=== PATIENT | female | born 1985 | race Caucasian/White ===

== ENCOUNTER 2018-07-07 09:46 | Emergency (ER) | payer OTHER, MEDICAID, SELFPAY ==
[2018-07-07 09:54] VITALS: BP 167/97; PULSE 103; RESP 20; TEMP 36.8; O2SAT 100; BMI 18.8
[2018-07-07 10:00] VITALS: BP 167/87; PULSE 102; RESP 20; O2SAT 99
[2018-07-07 11:21] VITALS: BP 151/92; PULSE 81; RESP 24; O2SAT 98
--- NOTE | 2018-07-07 11:43 | ED.ABDPAIN ---
HPI - Abdominal Pain General Chief Complaint: Abdominal Pain Stated Complaint: ABD PAIN Time Seen by Provider: 07/07/18 11:42 Source: patient Mode of arrival: ambulatory Limitations: no limitations History of Present Illness HPI narrative: Patient is a 33-year-old female here for evaluation of left-sided abdominal pain. She states has been going on for the past several days. Has had some nausea but no vomiting. Has had her appendix out in the past. No change in her bowel symptoms. No urinary symptoms. She is currently on her menstrual cycle. Not on control. Has not tried anything for symptoms prior to arrival. Related Data Previous Rx's Medication Instructions Recorded ciprofloxacin HCl 500 mg PO BID 10 Days #20 tab 07/07/18 metronidazole [Flagyl] 500 mg PO TID 10 Days #30 tab 07/07/18 tramadol [Ultram] 50 mg PO Q6H PRN #5 tab 07/07/18 Allergies Allergy/AdvReac Type Severity Reaction Status Date / Time No Known Drug Allergies Allergy Verified 07/07/18 13:14 Review of Systems Constitutional Denies fever(s) and Denies headache(s) ENT Ears, Nose, Mouth, and Throat: Denies headache(s) Cardiovascular Denies chest pain and Denies dyspnea Respiratory Denies dyspnea Gastrointestinal Gastrointestinal: Reports abdominal pain, Denies change in bowel habits, Denies diarrhea, Reports nausea and Denies vomiting Genitourinary Denies dysuria, Denies flank pain and Denies urinary urgency Musculoskeletal Denies myalgias and Denies arthralgias Integumentary/Breasts Denies rash Neurologic Denies headache(s) Hematologic/Lymphatic Comments: Not on anticoagulation Allergic/Immunologic Denies urticaria PFSH Medical History Healthy adult (Acute) Surgical History Hx of appendectomy (Acute) Social History Smoking Status: Current every day smoker Exam Initial Vital Signs Initial Vital Signs: Vital Signs Temperature 98.3 F 07/07/18 09:54 Pulse Rate 103 H 07/07/18 09:54 Respiratory Rate 20 07/07/18 09:54 Blood Pressure 167/97 H 07/07/18 09:54 Pulse Oximetry 100 07/07/18 09:54 Const General: cooperative, healthy appearing, comfortable, well developed, well groomed and No acute distress Orientation: alert, awake and oriented x3 HENMT Head: normal to inspection and normocephalic Resp Effort & Inspection: normal respiratory effort Auscultation: clear to auscultation bilaterally Cardio Rate: regular rate Rhythm: regular rhythm Pulses: radial pulses present GI Inspection: non-distended Palpation: soft, No firm, No guarding and tender (Left upper quadrant and left side of the abdomen.) Back/Spine/Pelvis Back: No CVA tenderness Skin General: no rashes or lesions noted Neuro General: alert, awake and oriented x3 Extrem General: normal to inspection, capillary refill normal and edema Psych Appearance: grossly normal and well kempt Course Orders Ordered: ED Orders 07/07/18 12:49 Complete Blood Count AUTO DIFF Stat Comprehensive Metabolic Panel Stat Lipase Stat 07/07/18 13:10 CT abdomen pelvis w con Stat Discontinued Medications Sodium Chloride (Normal Saline 0.9%) 1,000 mls @ 1,000 mls/hr IV BOLUS ONE Stop: 07/07/18 13:20 Last Infusion: 07/07/18 14:01 Dose: 0 mls/hr Admin: 07/07/18 12:55 Dose: 1,000 mls/hr Lorazepam (Ativan) 1 mg IV NOW ONE Stop: 07/07/18 13:20 Last Admin: 07/07/18 13:23 Dose: 1 mg Morphine Sulfate (Morphine) 4 mg IV NOW ONE Stop: 07/07/18 12:22 Last Admin: 07/07/18 12:55 Dose: 4 mg Vital Signs - 8 hr 07/07/18 12:00 07/07/18 13:42 Pulse Rate 69 74 Respiratory Rate 16 19 Blood Pressure [Left Arm] 130/95 H 137/83 Pulse Oximetry 98 100 MDM - Abdominal Pain Lab Data Attestation: I reviewed the patient's lab results. Result diagrams: 07/07/18 12:49 07/07/18 12:49 Lab Results 07/07/18 07/07/18 Range/Units 12:49 12:49 WBC 8.2 (4.5-11.0) X10^3/uL RBC 3.66 L (4.0-5.2) X10^6/uL Hgb 13.3 (12.0-16.0) g/dL Hct 38.2 (36-46) % MCV 104.4 H (80-100) fL MCH 36.4 H (26-34) PG MCHC 34.8 (30-36) % RDW 13.5 (11.6-14.8) % Plt Count 250 (150-400) X10^3/uL Neut % (Auto) 74.1 (50-75) % Lymph % (Auto) 19.5 L (25-40) % [place] % (Auto) 5.5 (3-14) % Eos % (Auto) 0.4 L (2-4) % Baso % (Auto) 0.5 (0-2) % Neut # (Auto) 6100 (8228-2598) /uL Lymph # (Auto) 1600 (8319-1209) /uL [place] # (Auto) 400 (0-900) /uL Eos # (Auto) 0 (0-450) /uL Baso # (Auto) 0 (0-100) /uL Sodium 139 (137-145) mmol/L Potassium 3.5 (3.4-5.1) mmol/L Chloride 104 (98-107) mmol/L Carbon Dioxide 22 (22-32) mmol/L BUN 7 (7-17) mg/dL Creatinine 0.40 L (0.52-1.04) mg/dL Estimated GFR > 60.0 (>60) mL/min BUN/Creatinine Ratio 17.5 (6-22) Glucose 85 (70-100) mg/dL Calcium 9.6 (8.4-10.2) mg/dL Total Bilirubin 1.8 H (0.2-1.3) mg/dL AST 22 (14-36) IU/L ALT 22 (9-52) IU/L Alkaline Phosphatase 67 (38-126) U/L Total Protein 8.1 (6.3-8.2) g/dL Albumin 4.8 (3.5-5.0) g/dL Globulin 3.3 (1.7-4.1) g/dL Albumin/Globulin Ratio 1.5 (1.0-2.8) Lipase 130 (23-300) U/L Point of care testing: Point of Care Testing Test Results Negative Urine Dip Bedside Urine Glucose Negative Bedside Urine Bilirubin - Negative Bedside Urine Ketone - Negative Urine Specific [place] 1.015 Bedside Urine Occult Blood +/- Bedside Urine pH 6.0 Bedside Urine Urobilinogen - Negative Bedside Urine Nitrite - Negative Bedside Urine Leukocytes - Negative Esterase Imaging Data CT scan - abdomen: Radiologist's impression: [address] [address] [address] Scan Report Signed Patient: Brinda Mathews MMR#: [id number] : 1985Acct:[id number] Age/Sex: 33 / FDate of Service: 07/07/18 Loc: ED Accession Number: [id number] Procedure: CT abdomen pelvis w con Ordering Provider: Oliver Guo D.O. PROCEDURE: CT ABDOMEN PELVIS W CON INDICATIONS: Left-sided abdominal pain for 3 days TECHNIQUE: After the administration of oral and intravenous contrast, 5 mm thick sections acquired from the diaphragms to the symphysis. 5 mm thick coronal and sagittal reformats were performed. For radiation dose reduction, the following was used: automated exposure control, adjustment of mA and/or kV according to patient size. COMPARISON: None. FINDINGS: Image quality: Excellent. ABDOMEN: Lung bases: Lung bases are clear. Heart size is normal. Solid organs: The liver is slightly hypodense when compared to the spleen. There is mild intrahepatic and prominent extrahepatic biliary dilatation. The common bile duct measures up to 1.2 cm in diameter. No obvious intraluminal filling defects are present. A single calcified gallstone is present within the gallbladder, which is decompressed and demonstrates moderate wall thickening. The main pancreatic duct measures approximately 3 mm in diameter. The pancreas is otherwise unremarkable. The spleen is unremarkable. The kidneys are within normal limits. No hydronephrosis is evident. Peritoneum and bowel: There is a small hiatal hernia. Otherwise, the stomach and duodenum are unremarkable. The small bowel loops are nondilated. There is prominent inflammation of the wall of a portion of the transverse colon near the splenic flexure with corresponding overlying mesenteric edema. In the area of mesenteric edema it contains a small amount of air. Multifocal areas of colonic diverticulosis are evident. An additional area of wall thickening involving the sigmoid colon may be exaggerated by incomplete distention. No definite surrounding inflammation within the adjacent mesentery is appreciated. The appendix is not clearly seen on this exam. No loculated fluid collections or definite free fluid is seen. Nodes and vessels: No retroperitoneal or mesenteric adenopathy. Aorta and inferior vena cava are normal in caliber. Bones: No acute fractures or suspicious osseous lesions are evident. Age-appropriate degenerative changes of the lower lumbar spine are present. PELVIS: Genitourinary: There may be mild wall thickening of the urinary bladder. There are bilateral complex cystic lesions identified involving both ovaries, which is more pronounced on the left. Hydrosalpinx on the left may be present. The left ovary measures up to 25 cm in diameter. Miscellaneous: No inguinal hernias or adenopathy. There likely is a small amount of free fluid within the pelvis. No definite drainable or loculated fluid collections are evident. There is no free air. Bones: No suspicious bony lesions. No acute pelvic fractures are evident. A small bone island is evident involving the left acetabulum. IMPRESSION: 1. Focal diverticulitis at the left aspect of the transverse colon near the splenic flexure. An additional area of wall thickening involving the sigmoid colon may represent an early area of developing diverticulitis, as well. No bowel obstruction. 2. Complex bilateral ovarian cysts (left greater than right). There may be associated hydrosalpinx or pyosalpinx on the left. Please correlate clinically. A pelvic ultrasound may be helpful for better evaluation. 3. No definitive abscess. 4. Cholelithiasis. 5. Prominently dilated common bile duct may be related to an ampullary stricture. Please consider MRCP for further evaluation. 6. Mild hepatic steatosis. 7. Small hiatal hernia. Dictated by: Enrico Preston M.D. on 07/07/2018 at 12:51 Approved by: Enrico Preston M.D. on 07/07/2018 at 12:59 MDM Narrative Medical decision making narrative: Patient with a relatively benign abdominal exam. Her pain is clearly abdominal on not adnexal. CT scan shows diverticulitis which does fit with her presenting symptoms. She has no right upper quadrant tenderness. Her LFTs are unremarkable. Will send home on antibiotics. I did discuss this diagnosed was with the patient. I did inform her of the other findings on her CT scan to include the ovarian cysts and also the dilated right upper quadrant biliary ducts. Informed her that she needed to contact her primary care doctor regarding these as far as a follow-up. I do not feel that they are the cause of her symptoms today. Patient was given return precautions. She expressed understanding and agreement with plan. Discharge Plan Departure Patient Disposition: Home Clinical Impression: Diverticulitis, Ovarian cyst Discharge Date/Time: 07/07/18 14:38 Interventions: ED Discharge Assessment Last Done: 07/07/18 14:38 Instructions: Diverticulitis Activity Restrictions/Additional Instructions: take all the antibiotics as directed. I do recommend you contact your primary care doctor to follow up with regard to the ovarian cysts seen on the CT scan and also the other findings related to the gallbladder. Return to the emergency department for any new or worsening symptoms. Prescriptions: New metronidazole [Flagyl] 500 mg tablet 500 mg PO TID 10 Days Qty: 30 RF: 0 ciprofloxacin HCl 500 mg tablet 500 mg PO BID 10 Days Qty: 20 RF: 0 tramadol [Ultram] 50 mg tablet 50 mg PO Q6H PRN (Reason: pain) Qty: 5 RF: 0 Stand Alone Forms: Work Release Note
[2018-07-07 12:00] VITALS: BP 130/95; PULSE 69; RESP 16; O2SAT 98
[2018-07-07] MEDS: SODIUM CHLORIDE 0.9% 1,000 ML 1000 ML IV (12:55)
[2018-07-07] MEDS: MORPHINE 4 MG/ML INJ IV (12:55)
[2018-07-07 13:02] LABS: Add Manual Diff / Slide Review NO; Basophils Absolute Auto 0 /uL (0-100); Basophils Percent Auto 0.5 % (0-2); Eosinophils Absolute Auto 0 /uL (0-450); Eosinophils Percent Auto 0.4 % (2-4); Hematocrit 38.2 % (36-46); Hemoglobin 13.3 g/dL (12.0-16.0); Lymphocytes Absolute Auto 1600 /uL (1100-4500); Lymphocytes Percent Auto 19.5 % (25-40); Mean Corpuscular HGB Conc 34.8 % (30-36); Mean Corpuscular Hemoglobin 36.4 PG (26-34); Mean Corpuscular Volume 104.4 fL (80-100); Monocytes Absolute Auto 400 /uL (0-900); Monocytes Percent Auto 5.5 % (3-14); Neutrophils Absolute Auto 6100 /uL (1500-7000); Neutrophils Percent Auto 74.1 % (50-75); Platelet Count 250 X10^3/uL (150-400); Red Blood Cell Count 3.66 X10^6/uL (4.0-5.2); Red Cell Distribution Width 13.5 % (11.6-14.8); White Blood Cell Count 8.2 X10^3/uL (4.5-11.0)
--- NOTE | 2018-07-07 13:10 | DI.CT.S_ITS ---
PROCEDURE: CT ABDOMEN PELVIS W CON INDICATIONS: Left-sided abdominal pain for 3 days TECHNIQUE: After the administration of oral and intravenous contrast, 5 mm thick sections acquired from the diaphragms to the symphysis. 5 mm thick coronal and sagittal reformats were performed. For radiation dose reduction, the following was used: automated exposure control, adjustment of mA and/or kV according to patient size. COMPARISON: None. FINDINGS: Image quality: Excellent. ABDOMEN: Lung bases: Lung bases are clear. Heart size is normal. Solid organs: The liver is slightly hypodense when compared to the spleen. There is mild intrahepatic and prominent extrahepatic biliary dilatation. The common bile duct measures up to 1.2 cm in diameter. No obvious intraluminal filling defects are present. A single calcified gallstone is present within the gallbladder, which is decompressed and demonstrates moderate wall thickening. The main pancreatic duct measures approximately 3 mm in diameter. The pancreas is otherwise unremarkable. The spleen is unremarkable. The kidneys are within normal limits. No hydronephrosis is evident. Peritoneum and bowel: There is a small hiatal hernia. Otherwise, the stomach and duodenum are unremarkable. The small bowel loops are nondilated. There is prominent inflammation of the wall of a portion of the transverse colon near the splenic flexure with corresponding overlying mesenteric edema. In the area of mesenteric edema it contains a small amount of air. Multifocal areas of colonic diverticulosis are evident. An additional area of wall thickening involving the sigmoid colon may be exaggerated by incomplete distention. No definite surrounding inflammation within the adjacent mesentery is appreciated. The appendix is not clearly seen on this exam. No loculated fluid collections or definite free fluid is seen. Nodes and vessels: No retroperitoneal or mesenteric adenopathy. Aorta and inferior vena cava are normal in caliber. Bones: No acute fractures or suspicious osseous lesions are evident. Age-appropriate degenerative changes of the lower lumbar spine are present. PELVIS: Genitourinary: There may be mild wall thickening of the urinary bladder. There are bilateral complex cystic lesions identified involving both ovaries, which is more pronounced on the left. Hydrosalpinx on the left may be present. The left ovary measures up to 25 cm in diameter. Miscellaneous: No inguinal hernias or adenopathy. There likely is a small amount of free fluid within the pelvis. No definite drainable or loculated fluid collections are evident. There is no free air. Bones: No suspicious bony lesions. No acute pelvic fractures are evident. A small bone island is evident involving the left acetabulum. IMPRESSION: 1. Focal diverticulitis at the left aspect of the transverse colon near the splenic flexure. An additional area of wall thickening involving the sigmoid colon may represent an early area of developing diverticulitis, as well. No bowel obstruction. 2. Complex bilateral ovarian cysts (left greater than right). There may be associated hydrosalpinx or pyosalpinx on the left. Please correlate clinically. A pelvic ultrasound may be helpful for better evaluation. 3. No definitive abscess. 4. Cholelithiasis. 5. Prominently dilated common bile duct may be related to an ampullary stricture. Please consider MRCP for further evaluation. 6. Mild hepatic steatosis. 7. Small hiatal hernia. Dictated by: Enrico Preston M.D. on 07/07/2018 at 12:51 Approved by: Enrico Preston M.D. on 07/07/2018 at 12:59
[2018-07-07 13:14] LABS: Alanine Aminotransferase 22 IU/L (9-52); Albumin 4.8 g/dL (3.5-5.0); Albumin Globulin Ratio 1.5 (1.0-2.8); Alkaline Phosphatase 67 U/L (38-126); Aspartate Aminotransferase 22 IU/L (14-36); BUN Creatinine Ratio 17.5 (6-22); Bilirubin Total 1.8 mg/dL (0.2-1.3); Blood Urea Nitrogen 7 mg/dL (7-17); Calcium 9.6 mg/dL (8.4-10.2); Carbon Dioxide 22 mmol/L (22-32); Chloride 104 mmol/L (98-107); Estimated Glomerular Filt Rate > 60.0 mL/min (>60); Globulin 3.3 g/dL (1.7-4.1); Glucose 85 mg/dL (70-100); HEMOLYSIS < 15 (0-50); Lipase 130 U/L (23-300); Potassium 3.5 mmol/L (3.4-5.1); Sodium 139 mmol/L (137-145); Total Protein 8.1 g/dL (6.3-8.2)
[2018-07-07] MEDS: LORazepam 2 MG/ML SYRINGE 1 MG IV (13:23)
[2018-07-07 13:42] VITALS: BP 137/83; PULSE 74; RESP 19; O2SAT 100
== END 2018-07-07 14:38 | disposition home or self-care (01) ==
PROVIDERS: Emergency Provider Emergency Medicine
DX: K57.92 Diverticulitis of intestine, part unspecified, without perforation or abscess without bleeding (principal); N83.209 Unspecified ovarian cyst, unspecified side
CPT/HCPCS: 36591; 74177; 80053; 81003; 81025; 83690; 85025; 96361; 96374; 96375; 99283; 99285; J2060; J2270; Q9967

== ENCOUNTER 2018-10-11 07:47 | Emergency (ER) | payer OTHER, MEDICAID, SELFPAY ==
[2018-10-11 08:02] VITALS: BP 150/96; PULSE 85; RESP 18; O2SAT 100; BMI 19.3
--- NOTE | 2018-10-11 08:47 | DI.RAD.S_ITS ---
PROCEDURE: XR CHEST 2V INDICATIONS: rib pain/cough TECHNIQUE: 2 views of the chest were acquired. COMPARISON: [facility], CT, CT ABDOMEN PELVIS W CON, 07/07/2018, 13:19. [facility], CR, CHEST 2 VIEW, 06/14/2012, 7:19. [facility], CR, CHEST 2 VIEW, 06/16/2012, 10:11. FINDINGS: Surgical changes and devices: None. Lungs and pleura: No middle lobe infiltrate is seen. The lungs otherwise appear clear. No pneumothorax or pleural effusions are seen. Mediastinum: Mediastinal contours are normal. Heart size is normal. Bones and chest wall: No suspicious bony abnormalities. No focal rib abnormality is seen. Moderate dextroconvex scoliosis is seen. Soft tissues appear unremarkable. IMPRESSION: Right middle lobe infiltrate is seen. No focal rib abnormality is seen. Dictated by: Medardo Mcneil M.D. on 10/11/2018 at 8:14 Approved by: Medardo Mcneil M.D. on 10/11/2018 at 8:15
[2018-10-11 09:13] VITALS: BP 143/97; PULSE 85; O2SAT 99
--- NOTE | 2018-10-11 10:39 | ED.SOB ---
HPI - SOB/Dyspnea General Chief Complaint: Shortness of Breath/Dyspnea Stated Complaint: Pain Rt side upper extremity Time Seen by Provider: 10/11/18 09:27 Source: patient Mode of arrival: ambulatory Limitations: no limitations History of Present Illness Patient complains of pain behind her right breast and cough with some degree of dyspnea for the last 2 days. Patient states that she has not had any fevers. No sick contacts. No nausea or vomiting. No radiation of the pain. patient states that she is a smoker. She is scheduled for a left ovarian surgery next week, and came in to make sure everything is okay. Related Data Home Medications Medication Instructions Recorded Confirmed erythromycin 10/11/18 hydrocodone-acetaminophen 1 tab PO Q6H PRN 10/11/18 10/11/18 oxycodone 5 mg PO Q6H PRN 10/11/18 10/11/18 Previous Rx's Medication Instructions Recorded tramadol [Ultram] 50 mg PO Q6H PRN #5 tab 07/07/18 azithromycin See Rx Instructions .ROUTE 10/11/18 .COMPLEX #6 tab hydrocodone-acetaminophen 1 tab PO Q6H PRN #10 tab 10/11/18 Allergies Allergy/AdvReac Type Severity Reaction Status Date / Time No Known Drug Allergies Allergy Verified 10/11/18 08:05 Review of Systems Constitutional Denies chills, Denies fever(s), Denies lethargy and Denies weakness Eyes Denies change in vision, Denies eye discharge, Denies irritation and Denies loss of vision ENT Ears, Nose, Mouth, and Throat: Denies change in voice, Denies neck pain and Denies sore throat Cardiovascular Reports chest pain, Denies irregular heart rhythm, Denies lightheadedness, Denies palpitations, Reports dyspnea and Denies orthopnea Respiratory Reports cough, Reports dyspnea and Denies wheezing Gastrointestinal Gastrointestinal: Denies abdominal pain, Denies change in bowel habits, Denies diarrhea, Denies nausea and Denies vomiting Genitourinary Denies hematuria, Denies flank pain, Denies urinary incontinence and Denies urinary urgency Musculoskeletal Denies neck pain Integumentary/Breasts Denies pruritus, Denies erythema, Denies rash and Denies wounds Neurologic Denies confusion, Denies loss of vision and Denies weakness Psychiatric Denies anxiety, Denies confusion, Denies depression, Denies homicidal ideation and Denies suicidal ideation Endocrine Denies palpitations Hematologic/Lymphatic Denies easy bruising Allergic/Immunologic Denies wheezing PFSH Medical History Healthy adult (Acute) Surgical History Hx of appendectomy (Acute) Social History Smoking Status: Current every day smoker Social History Smoking Status: Current every day smoker Exam Initial Vital Signs Initial Vital Signs: Vital Signs Pulse Rate 85 10/11/18 08:02 Respiratory Rate 18 10/11/18 08:02 Blood Pressure 150/96 H 10/11/18 08:02 Pulse Oximetry 100 10/11/18 08:02 Const General: cooperative and well developed Nutritional Appearance: well nourished Orientation: alert, awake, oriented x3 and not confused HENMT Head: normocephalic and atraumatic Ears: external ears normal Nose: external nose normal and No nasal discharge Face and sinus: face symmetric and No dry mucous membranes Mouth: oral mucosae normal and moist mucous membranes Teeth and gingiva: dentition normal Eyes General: appearance normal, both eyes and all related structures Eyelids: eyelids normal Conjunctivae: conjunctivae normal Sclera: sclerae normal Pupils: PERRL EOM: EOM intact bilaterally Neck Neck: normal visual inspection, trachea midline, No lymphadenopathy, No midline deformity and No JVD Lymphatic: No lymphedema Chest Chest: normal inspection of the chest Resp Effort & Inspection: normal respiratory effort, able to speak in complete sentences, no respiratory distress and no use of accessory muscles Auscultation: clear to auscultation bilaterally, no rales, no rhonchi and no wheezes Cardio Rate: regular rate Rhythm: regular rhythm Heart Sounds: no click, no gallops, no murmurs and no rubs Pulses: normal peripheral pulses GI Inspection: non-distended Palpation: soft, no hepatosplenomegaly, No guarding, No pulsatile mass and No tender Auscultation: normal bowel sounds Back/Spine/Pelvis Back: No CVA tenderness Cervical Spine: cervical ROM normal and No pain with cervical ROM Thoracic/Lumbar Spine: thoracic and lumbar spine normal to inspection Skin General: no rashes or lesions noted, No jaundice and No petechiae Neuro General: alert, oriented x3, gait normal and no focal motor deficits Speech: speech normal Extrem General: full ROM, no clubbing, cyanosis or edema, no pedal edema and no calf tenderness Psych Appearance: well kempt Mental Status: mental status grossly normal Attitude: cooperative Thought Content: normal and suicidality Judgment: judgment good Course Course Narrative: Patient was worked up with chest x-ray, and found have a right middle lobe pneumonia. She was given Rocephin and Zithromax in the emergency department, and we have discussed home management the symptoms. we have also discussed the usual indications for return. Orders Ordered: Discontinued Medications Hydrocodone Bitart/Acetaminophen ([place] 5/325) 1 tab PO NOW ONE Stop: 10/11/18 10:42 Last Admin: 10/11/18 10:57 Dose: 1 tab Azithromycin (Zithromax) 500 mg PO NOW ONE Stop: 10/11/18 10:42 Last Admin: 10/11/18 10:57 Dose: 500 mg Ceftriaxone Sodium (Rocephin) 2,000 mg IM NOW ONE Stop: 10/11/18 10:42 Last Admin: 10/11/18 11:18 Dose: 2,000 mg Ibuprofen (Advil) 800 mg PO NOW ONE Stop: 10/11/18 10:42 Last Admin: 10/11/18 10:57 Dose: 800 mg Vital Signs - 8 hr 10/11/18 08:02 10/11/18 09:13 Pulse Rate 85 85 Respiratory Rate 18 Blood Pressure 150/96 H Blood Pressure [Left Arm] 143/97 H Pulse Oximetry 100 99 MDM - SOB/Dyspnea Medical Records Attestation: I reviewed the patient's medical records. Imaging Data Chest x-ray: Radiologist's impression: PROCEDURE: XR CHEST 2V INDICATIONS: rib pain/cough TECHNIQUE: 2 views of the chest were acquired. COMPARISON: [facility], CT, CT ABDOMEN PELVIS W CON, 07/07/2018, 13:19. [facility], , CHEST 2 VIEW, 06/14/2012, 7:19. [facility], , CHEST 2 VIEW, 06/16/2012, 10:11. FINDINGS: Surgical changes and devices: None. Lungs and pleura: No middle lobe infiltrate is seen. The lungs otherwise appear clear. No pneumothorax or pleural effusions are seen. Mediastinum: Mediastinal contours are normal. Heart size is normal. Bones and chest wall: No suspicious bony abnormalities. No focal rib abnormality is seen. Moderate dextroconvex scoliosis is seen. Soft tissues appear unremarkable. IMPRESSION: Right middle lobe infiltrate is seen. No focal rib abnormality is seen. Dictated by: Medardo Mcneil M.D. on 10/11/2018 at 8:14 Approved by: Medardo Mcneil M.D. on 10/11/2018 at 8:15 Discharge Plan Departure Patient Disposition: Home Clinical Impression: Community acquired pneumonia Qualifiers: Laterality: right Lung location: middle lobe of lung Qualified Code(s): J18.1 - Lobar pneumonia, unspecified organism Discharge Date/Time: 10/11/18 11:47 Interventions: ED Discharge Assessment Last Done: 10/11/18 11:47 Instructions: DI for Pneumonia -- Adult Activity Restrictions/Additional Instructions: Your chest x-ray showed a small area of pneumonia in your right lung in the middle lobe. You will need about 1 week of antibiotics to treat this. You should stay home for the next 24 hours and rest to help your body started to recover. Prescriptions: New azithromycin 500 mg tablet See Rx Instructions .ROUTE .COMPLEX Qty: 6 RF: 0 hydrocodone-acetaminophen 5-325 mg tablet 1 tab PO Q6H PRN (Reason: pain) Qty: 10 RF: 0 No Action hydrocodone-acetaminophen 5-325 mg tablet 1 tab PO Q6H PRN (Reason: pain) RF: 0 erythromycin 5 mg/gram (0.5 %) ointment RF: 0 oxycodone 5 mg tablet 5 mg PO Q6H PRN (Reason: pain) RF: 0 tramadol [Ultram] 50 mg tablet 50 mg PO Q6H PRN (Reason: pain) Qty: 5 RF: 0 Referrals: [facility] [Provider Group] Stand Alone Forms: Work Release Note
[2018-10-11] MEDS: IBUPROFEN 400 MG TABLET 800 MG PO (10:57)
[2018-10-11] MEDS: HYDROCODONE/ACET 5/325 TABLET 1 TAB PO (10:57)
[2018-10-11] MEDS: AZITHROMYCIN 250 MG TABLET 500 MG PO (10:57)
[2018-10-11 11:09] VITALS: BP 143/88; PULSE 86; RESP 14; O2SAT 100
[2018-10-11] MEDS: cefTRIAXone 2,000 MG VIAL 2000 MG IM (11:18)
[2018-10-11 11:47] VITALS: BP 138/64; PULSE 78; RESP 16; O2SAT 98
== END 2018-10-11 11:47 | disposition home or self-care (01) ==
PROVIDERS: Emergency Provider Emergency Medicine
DX: J18.1 Lobar pneumonia, unspecified organism (principal)
CPT/HCPCS: 71046; 96372; 99282; 99283; J0696

== ENCOUNTER → 2018-11-18 11:25 | Outpatient (CLI) | payer OTHER, MEDICAID, SELFPAY ==
--- NOTE | 2018-11-18 11:52 | DI.CT.S_ITS ---
PROCEDURE: CT ABDOMEN PELVIS W CON INDICATIONS: PAIN ASSOCIATED WITH SURGICAL PROCEDURE TECHNIQUE: After the administration of oral and intravenous contrast, 5 mm thick sections acquired from the diaphragms to the symphysis. 5 mm thick coronal and sagittal reformats were performed. For radiation dose reduction, the following was used: automated exposure control, adjustment of mA and/or kV according to patient size. COMPARISON: [facility], CT, CT ABDOMEN PELVIS W CON, 07/07/2018, 13:19. FINDINGS: Image quality: Excellent. ABDOMEN: Lung bases: Lung bases are clear. Heart size is normal. Solid organs: Liver is normal in size and enhancement. Gallbladder is partly contracted. Biliary system is non-dilated. Pancreas enhances normally. Spleen is normal in size and enhancement. No adrenal nodules. Kidneys are normal in size and enhancement, without hydronephrosis. Peritoneum and bowel: Stomach, small bowel, and colon loops are normal in caliber and wall thickness. No free fluid or air. Nodes and vessels: No retroperitoneal or mesenteric adenopathy. Aorta and inferior vena cava are normal in caliber. Miscellaneous: No ventral hernias. PELVIS: Genitourinary: Bladder wall thickness is normal. Miscellaneous: No inguinal hernias or adenopathy. Bones: No suspicious bony lesions. No vertebral body compression fractures. IMPRESSION: Reported prior left oophorectomy and fallopian tube removal 10/18/18. No operative complication. Pain reportedly is on the right, no evidence of appendicitis or right adnexal pathology. A source of current pain is not seen. Dictated by: Tyler Valero M.D. on 11/18/2018 at 15:14 Approved by: Tyler Valero M.D. on 11/18/2018 at 15:18
== END ==
PROVIDERS: Visit Provider Obstetrics & Gynecology
DX: G89.18 Other acute postprocedural pain (principal); Z90.721 Acquired absence of ovaries, unilateral; Z90.79 Acquired absence of other genital organ(s)
CPT/HCPCS: 74177; Q9967

== ENCOUNTER 2018-12-04 13:50 | Emergency (ER) | payer OTHER, MEDICAID, SELFPAY ==
[2018-12-04 14:00] VITALS: BP 158/121; PULSE 105; RESP 24; TEMP 36.6; O2SAT 99; BMI 20.9
--- NOTE | 2018-12-04 14:08 | DI.RAD.S_ITS ---
PROCEDURE: XR CHEST 2V INDICATIONS: cough TECHNIQUE: 2 views of the chest were acquired. COMPARISON: None. FINDINGS: Surgical changes and devices: None. Lungs and pleura: There is mild patchy opacity within the right upper lobe anteroinferiorly adjacent to the minor fissure. No pleural effusions or pneumothorax. Mediastinum: Mediastinal contours are normal. Heart size is normal. Bones and chest wall: No suspicious bony abnormalities. Soft tissues appear unremarkable. IMPRESSION: Right upper lobe pneumonia. Followup PA and lateral chest films are recommended to ensure resolution, and to exclude underlying malignancy. Dictated by: Anupam Gilmore M.D. on 12/04/2018 at 13:34 Approved by: Anupam Gilmore M.D. on 12/04/2018 at 13:35
[2018-12-04 15:10] VITALS: PULSE 93; RESP 16; O2SAT 97
[2018-12-04] MEDS: ALBUTEROL/IPRATROPIUM 3 ML AMPUL INH (15:15)
[2018-12-04] MEDS: KETOROLAC 60 MG/2 ML VIAL 30 MG IV (15:33)
[2018-12-04] MEDS: SODIUM CHLORIDE 0.9% 1,000 ML 1000 ML IV ×2 (15:34→16:37)
[2018-12-04 15:37] VITALS: BP 150/92; PULSE 110; RESP 16; TEMP 36.7; O2SAT 95
[2018-12-04 15:38] LABS: Add Manual Diff / Slide Review NO; Basophils Absolute Auto 0 /uL (0-100); Basophils Percent Auto 0.4 % (0-2); Eosinophils Absolute Auto 0 /uL (0-450); Eosinophils Percent Auto 0.2 % (2-4); Hematocrit 36.2 % (36-46); Hemoglobin 12.5 g/dL (12.0-16.0); Lymphocytes Absolute Auto 1700 /uL (1100-4500); Lymphocytes Percent Auto 16.1 % (25-40); Mean Corpuscular HGB Conc 34.5 % (30-36); Mean Corpuscular Hemoglobin 35.3 PG (26-34); Mean Corpuscular Volume 102.1 fL (80-100); Monocytes Absolute Auto 1100 /uL (0-900); Monocytes Percent Auto 10.6 % (3-14); Neutrophils Absolute Auto 7800 /uL (1500-7000); Neutrophils Percent Auto 72.7 % (50-75); Platelet Count 294 X10^3/uL (150-400); Red Blood Cell Count 3.55 X10^6/uL (4.0-5.2); Red Cell Distribution Width 13.1 % (11.6-14.8); White Blood Cell Count 10.7 X10^3/uL (4.5-11.0)
--- NOTE | 2018-12-04 15:41 | ED.SOB ---
HPI - SOB/Dyspnea <ALMA Ohara - Last Filed: 12/04/18 18:15> General Chief Complaint: Shortness of Breath/Dyspnea Stated Complaint: dyspnea/cp x3days Time Seen by Provider: 12/04/18 15:16 Source: patient and family Mode of arrival: ambulatory Limitations: no limitations History of Present Illness The patient is a 33-year-old female current everyday smoker with history of pneumonia who presents with her mother for chief complaint of ?I think I have pneumonia again.She states that she has been coughing over the past few days, states that she is coughing up sputum. She complains of chest pain and her right upper chest. She denies any fevers nausea vomiting or diarrhea. She does complain of chills. Of note she was recently treated for pneumonia with azithromycin on October 11. She states she has been using her albuterol inhaler more. Related Data Home Medications Medication Instructions Recorded Confirmed erythromycin 10/11/18 hydrocodone-acetaminophen 1 tab PO Q6H PRN 10/11/18 10/11/18 oxycodone 5 mg PO Q6H PRN 10/11/18 10/11/18 Previous Rx's Medication Instructions Recorded tramadol [Ultram] 50 mg PO Q6H PRN #5 tab 07/07/18 azithromycin See Rx Instructions .ROUTE 10/11/18 .COMPLEX #6 tab hydrocodone-acetaminophen 1 tab PO Q6H PRN #10 tab 10/11/18 doxycycline hyclate 100 mg PO BID #20 tab 12/04/18 Allergies Allergy/AdvReac Type Severity Reaction Status Date / Time No Known Drug Allergies Allergy Verified 10/11/18 08:05 Review of Systems <ALMA Ohara - Last Filed: 12/04/18 18:15> Review of Systems GENERAL: See HPI HEENT: Denies sinus pain, ear pain, sore throat, difficulty swallowing, dizziness. RESPIRATORY: See HPI CARDIOVASCULAR: Denies chest pain, palpitations, orthopnea, edema, GASTROINTESTINAL: Denies nausea, vomiting, abdominal pain, diarrhea, constipation, melena. : Denies dysuria, frequency, incontinence, hematuria, urinary retention. MUSCULOSKELETAL: denies weakness, joint pain, or bony pain SKIN: Denies rash, skin lesions, or other NEUROLOGIC: Denies weakness, headache, numbness, change in speech, confusion, seizures, incoordination. PSYCHIATRIC: No concerning psychosocial issues. 12 point review of systems is negative except for those stated above PFSH <Kiersten AndreDEVEN-MILVIA - Last Filed: 12/04/18 18:15> Social History Smoking Status: Current every day smoker Exam <Kiersten GomezLACHELLE garcia - Last Filed: 12/04/18 18:15> Narrative Exam Narrative: GENERAL: This is a well-nourished, well-developed patient, appears uncomfortable HEAD: Atraumatic. Normocephalic. No temporal or scalp tenderness. EYES: Pupils equal round and reactive. Extraocular motions intact. No scleral icterus. No injection or drainage. ENT: Nose without bleeding, purulent drainage or septal hematoma. Throat without erythema, tonsillar hypertrophy or exudate. Uvula midline. Airway patent. NECK: Trachea midline. No JVD or lymphadenopathy. Supple, nontender, no meningeal signs. CARDIOVASCULAR: Regular rate and rhythm RESPIRATORY: Right-sided crackles to auscultation. Productive cough. No accessory muscle use. Speaking full sentences. GASTROINTESTINAL: Abdomen soft, non-tender, nondistended. No hepato-splenomegaly, or palpable masses. No guarding. Active bowel sounds all 4 quadrants. EXTREMITIES: No clubbing, cyanosis, or edema. No joint tenderness, effusion, or edema noted. BACK: Nontender without deformity or crepitance. No flank tenderness. NEURO: AOx3. SKIN: No rash or erythema. Initial Vital Signs Initial Vital Signs: Vital Signs Temperature 97.9 F 12/04/18 14:00 Pulse Rate 105 H 12/04/18 14:00 Respiratory Rate 24 12/04/18 14:00 Blood Pressure 158/121 H 12/04/18 14:00 Pulse Oximetry 99 12/04/18 14:00 <Dayna Ga MD - Last Filed: 12/04/18 19:55> Initial Vital Signs Initial Vital Signs: Vital Signs Temperature 97.9 F 12/04/18 14:00 Pulse Rate 105 H 12/04/18 14:00 Respiratory Rate 24 12/04/18 14:00 Blood Pressure 158/121 H 12/04/18 14:00 Pulse Oximetry 99 12/04/18 14:00 Course <Kiersten Andre B[employer]S DEVELOPER-BC - Last Filed: 12/04/18 18:15> Orders Ordered: ED Orders 12/04/18 14:08 XR chest 2V Stat 12/04/18 15:30 Complete Blood Count AUTO DIFF Stat Comprehensive Metabolic Panel Stat Lactate (Lactic Acid) Stat Lipase Stat Partial Thromboplastin Time Stat Procalcitonin Stat Prothrombin Time INR Stat 12/04/18 15:45 Blood Culture Stat Sputum Culture Stat 12/04/18 16:30 Urine Culture Stat Urine Microscopic Stat Discontinued Medications Albuterol (Ventolin Hfa Prepack) 1 box MISC SEEINSTR ONE Stop: 12/04/18 16:40 Last Admin: 12/04/18 16:43 Dose: 1 box Albuterol/Ipratropium (Duoneb) 3 ml INH Q1H PRN PRN Reason: Shortness Of Breath Last Admin: 12/04/18 15:15 Dose: 3 ml Doxycycline Hyclate (Vibramycin) 100 mg PO NOW ONE Stop: 12/04/18 16:40 Last Admin: 12/04/18 16:45 Dose: 100 mg Guaifenesin (Mucinex) 600 mg PO NOW ONE Stop: 12/04/18 15:06 Last Admin: 12/04/18 16:07 Dose: 600 mg Sodium Chloride (Normal Saline 0.9%) 1,000 mls @ 1,000 mls/hr IV BOLUS ONE Stop: 12/04/18 16:04 Last Infusion: 12/04/18 16:31 Dose: 0 mls/hr Admin: 12/04/18 15:34 Dose: 1,000 mls/hr Sodium Chloride (Normal Saline 0.9%) 1,000 mls @ 1,000 mls/hr IV BOLUS ONE Stop: 12/04/18 17:30 Last Infusion: 12/04/18 17:49 Dose: 0 mls/hr Admin: 12/04/18 16:37 Dose: 1,000 mls/hr Sodium Chloride (Normal Saline 0.9%) 1,000 mls @ 1,000 mls/hr IV BOLUS ONE Stop: 12/04/18 17:30 Last Admin: 12/04/18 16:38 Dose: Not Given Ketorolac Tromethamine (Toradol) 30 mg IV NOW ONE Stop: 12/04/18 15:06 Last Admin: 12/04/18 15:33 Dose: 30 mg Vital Signs - 8 hr 12/04/18 14:00 12/04/18 15:10 12/04/18 15:37 Temperature 97.9 F 98.1 F Pulse Rate 105 H 93 H 110 H Respiratory Rate 24 16 16 Blood Pressure 158/121 H Blood Pressure [Left Arm] 150/92 H Pulse Oximetry 99 97 95 12/04/18 17:00 Temperature Pulse Rate 98 H Respiratory Rate 15 Blood Pressure Blood Pressure [Left Arm] 158/97 H Pulse Oximetry 100 <Dayna Ga MD - Last Filed: 12/04/18 19:55> Orders Ordered: ED Orders 12/04/18 14:08 XR chest 2V Stat 12/04/18 15:30 Complete Blood Count AUTO DIFF Stat Comprehensive Metabolic Panel Stat Lactate (Lactic Acid) Stat Lipase Stat Partial Thromboplastin Time Stat Procalcitonin Stat Prothrombin Time INR Stat 12/04/18 15:45 Blood Culture Stat Sputum Culture Stat 12/04/18 16:30 Urine Culture Stat Urine Microscopic Stat Discontinued Medications Albuterol (Ventolin Hfa Prepack) 1 box MISC SEEINSTR ONE Stop: 12/04/18 16:40 Last Admin: 12/04/18 16:43 Dose: 1 box Albuterol/Ipratropium (Duoneb) 3 ml INH Q1H PRN PRN Reason: Shortness Of Breath Last Admin: 12/04/18 15:15 Dose: 3 ml Doxycycline Hyclate (Vibramycin) 100 mg PO NOW ONE Stop: 12/04/18 16:40 Last Admin: 12/04/18 16:45 Dose: 100 mg Guaifenesin (Mucinex) 600 mg PO NOW ONE Stop: 12/04/18 15:06 Last Admin: 12/04/18 16:07 Dose: 600 mg Sodium Chloride (Normal Saline 0.9%) 1,000 mls @ 1,000 mls/hr IV BOLUS ONE Stop: 12/04/18 16:04 Last Infusion: 12/04/18 16:31 Dose: 0 mls/hr Admin: 12/04/18 15:34 Dose: 1,000 mls/hr Sodium Chloride (Normal Saline 0.9%) 1,000 mls @ 1,000 mls/hr IV BOLUS ONE Stop: 12/04/18 17:30 Last Infusion: 12/04/18 17:49 Dose: 0 mls/hr Admin: 12/04/18 16:37 Dose: 1,000 mls/hr Sodium Chloride (Normal Saline 0.9%) 1,000 mls @ 1,000 mls/hr IV BOLUS ONE Stop: 12/04/18 17:30 Last Admin: 12/04/18 16:38 Dose: Not Given Ketorolac Tromethamine (Toradol) 30 mg IV NOW ONE Stop: 12/04/18 15:06 Last Admin: 12/04/18 15:33 Dose: 30 mg Vital Signs - 8 hr 12/04/18 14:00 12/04/18 15:10 12/04/18 15:37 Temperature 97.9 F 98.1 F Pulse Rate 105 H 93 H 110 H Respiratory Rate 24 16 16 Blood Pressure 158/121 H Blood Pressure [Left Arm] 150/92 H Pulse Oximetry 99 97 95 12/04/18 17:00 Temperature Pulse Rate 98 H Respiratory Rate 15 Blood Pressure Blood Pressure [Left Arm] 158/97 H Pulse Oximetry 100 MDM - SOB/Dyspnea <LACHELLE Ohara - Last Filed: 12/04/18 18:15> Lab Data Result diagrams: 12/04/18 15:30 12/04/18 15:30 Lab Results 12/04/18 12/04/18 12/04/18 Range/Units 15:30 15:30 15:30 WBC 10.7 (4.5-11.0) X10^3/uL RBC 3.55 L (4.0-5.2) X10^6/uL Hgb 12.5 (12.0-16.0) g/dL Hct 36.2 (36-46) % MCV 102.1 H (80-100) fL MCH 35.3 H (26-34) PG MCHC 34.5 (30-36) % RDW 13.1 (11.6-14.8) % Plt Count 294 (150-400) X10^3/uL Neut % (Auto) 72.7 (50-75) % Lymph % (Auto) 16.1 L (25-40) % [place] % (Auto) 10.6 (3-14) % Eos % (Auto) 0.2 L (2-4) % Baso % (Auto) 0.4 (0-2) % Neut # (Auto) 7800 H (5434-3948) /uL Lymph # (Auto) 1700 (3458-4922) /uL [place] # (Auto) 1100 H (0-900) /uL Eos # (Auto) 0 (0-450) /uL Baso # (Auto) 0 (0-100) /uL PT 12.1 (10.1-12.7) SECONDS INR 1.0 (0.9-1.3) APTT 32 (26.4-36.2) SECONDS Sodium (137-145) mmol/L Potassium (3.4-5.1) mmol/L Chloride (98-107) mmol/L Carbon Dioxide (22-32) mmol/L BUN (7-17) mg/dL Creatinine (0.52-1.04) mg/dL Estimated GFR (>60) mL/min BUN/Creatinine Ratio (6-22) Glucose (70-100) mg/dL Lactate (0.7-2.1) mmol/L Calcium (8.4-10.2) mg/dL Total Bilirubin (0.2-1.3) mg/dL AST (14-36) IU/L ALT (9-52) IU/L Alkaline Phosphatase (38-126) U/L Total Protein (6.3-8.2) g/dL Albumin (3.5-5.0) g/dL Globulin (1.7-4.1) g/dL Albumin/Globulin Ratio (1.0-2.8) Lipase (23-300) U/L Procalcitonin < 0.05 (<0.5) ng/mL Urine RBC (0-5/HPF) Urine WBC (0-5/HPF) Ur Squamous Epith Cells (0-5/HPF) Amorphous Sediment Urine Bacteria (None) Urine Mucus (Negative) Ur Culture Indicated? 12/04/18 12/04/18 12/04/18 Range/Units 15:30 15:30 16:30 WBC (4.5-11.0) X10^3/uL RBC (4.0-5.2) X10^6/uL Hgb (12.0-16.0) g/dL Hct (36-46) % MCV (80-100) fL MCH (26-34) PG MCHC (30-36) % RDW (11.6-14.8) % Plt Count (150-400) X10^3/uL Neut % (Auto) (50-75) % Lymph % (Auto) (25-40) % [place] % (Auto) (3-14) % Eos % (Auto) (2-4) % Baso % (Auto) (0-2) % Neut # (Auto) (1419-7047) /uL Lymph # (Auto) (0762-9680) /uL [place] # (Auto) (0-900) /uL Eos # (Auto) (0-450) /uL Baso # (Auto) (0-100) /uL PT (10.1-12.7) SECONDS INR (0.9-1.3) APTT (26.4-36.2) SECONDS Sodium 142 (137-145) mmol/L Potassium 3.7 (3.4-5.1) mmol/L Chloride 107 (98-107) mmol/L Carbon Dioxide 25 (22-32) mmol/L BUN 8 (7-17) mg/dL Creatinine 0.50 L (0.52-1.04) mg/dL Estimated GFR > 60.0 (>60) mL/min BUN/Creatinine Ratio 16.0 (6-22) Glucose 84 (70-100) mg/dL Lactate 0.9 (0.7-2.1) mmol/L Calcium 9.8 (8.4-10.2) mg/dL Total Bilirubin 1.2 (0.2-1.3) mg/dL AST 16 (14-36) IU/L ALT 9 (9-52) IU/L Alkaline Phosphatase 99 (38-126) U/L Total Protein 7.4 (6.3-8.2) g/dL Albumin 4.1 (3.5-5.0) g/dL Globulin 3.3 (1.7-4.1) g/dL Albumin/Globulin Ratio 1.2 (1.0-2.8) Lipase 90 (23-300) U/L Procalcitonin (<0.5) ng/mL Urine RBC 5-10/hpf H (0-5/HPF) Urine WBC 5-10/hpf H (0-5/HPF) Ur Squamous Epith Cells 1-5 /hpf (0-5/HPF) Amorphous Sediment 1+ Urine Bacteria Few (2-10) H (None) Urine Mucus 1+ H (Negative) Ur Culture Indicated? Specimen cultured Point of Care Testing Test Results Negative Urine Dip Bedside Urine Glucose Negative Bedside Urine Bilirubin - Negative Bedside Urine Ketone ++ 40 Urine Specific Vestal 1.030 Bedside Urine Occult Blood +++ Bedside Urine pH 5.5 Bedside Urine Protein +/- 15 Bedside Urine Urobilinogen +/- 1mg Bedside Urine Nitrite - Negative Bedside Urine Leukocytes +/- 15 Esterase Imaging Data Chest x-ray: Radiologist's impression: [address] [address] XRay Report Signed Patient: Brinda Mathews MMR#: [id number] : 1985Acct:[id number] Age/Sex: 33 / FDate of Service: 12/04/18 Loc: ED Accession Number: [id number] Procedure: XR chest 2V Ordering Provider: Dayna Ga MD PROCEDURE: XR CHEST 2V INDICATIONS: cough TECHNIQUE: 2 views of the chest were acquired. COMPARISON: None. FINDINGS: Surgical changes and devices: None. Lungs and pleura: There is mild patchy opacity within the right upper lobe anteroinferiorly adjacent to the minor fissure. No pleural effusions or pneumothorax. Mediastinum: Mediastinal contours are normal. Heart size is normal. Bones and chest wall: No suspicious bony abnormalities. Soft tissues appear unremarkable. IMPRESSION: Right upper lobe pneumonia. Followup PA and lateral chest films are recommended to ensure resolution, and to exclude underlying malignancy. Dictated by: Anupam Gilmore M.D. on 12/04/2018 at 13:34 Approved by: Anupam Gilmore M.D. on 12/04/2018 at 13:35 [facility] Narrative Medical decision making narrative: The patient is a 33-year-old female who presents with recurrent pneumonia. She was most recently treated for right-sided pneumonia on October 11 of this year. She presents again with productive cough and pneumonia in her right upper lobe. She was treated with azithromycin last time as well as IM Rocephin. She does not have an elevated white blood cell count, lactate or pro calcitonin. She was treated with nebulizer treatments, IV fluids. I did discuss using doxycycline versus Levaquin. The patient elected to refrain from using fluoroquinolones at this point in time given the tendon morning as well as her history of C diff. I did discuss using sunscreen while taking doxycycline. I gave her a take home pack of albuterol. I did discuss at length, smoking cessation as well as follow-up with her PCP. Discussed coming back to the ER for any acute concerns such as chest pain, shortness of breath etc. She does have a sputum culture pending at this point time. <Dayna Ga MD - Last Filed: 12/04/18 19:55> Lab Data Lab Results 12/04/18 12/04/18 12/04/18 Range/Units 15:30 15:30 15:30 WBC 10.7 (4.5-11.0) X10^3/uL RBC 3.55 L (4.0-5.2) X10^6/uL Hgb 12.5 (12.0-16.0) g/dL Hct 36.2 (36-46) % MCV 102.1 H (80-100) fL MCH 35.3 H (26-34) PG MCHC 34.5 (30-36) % RDW 13.1 (11.6-14.8) % Plt Count 294 (150-400) X10^3/uL Neut % (Auto) 72.7 (50-75) % Lymph % (Auto) 16.1 L (25-40) % [place] % (Auto) 10.6 (3-14) % Eos % (Auto) 0.2 L (2-4) % Baso % (Auto) 0.4 (0-2) % Neut # (Auto) 7800 H (2015-9498) /uL Lymph # (Auto) 1700 (0871-3380) /uL [place] # (Auto) 1100 H (0-900) /uL Eos # (Auto) 0 (0-450) /uL Baso # (Auto) 0 (0-100) /uL PT 12.1 (10.1-12.7) SECONDS INR 1.0 (0.9-1.3) APTT 32 (26.4-36.2) SECONDS Sodium (137-145) mmol/L Potassium (3.4-5.1) mmol/L Chloride (98-107) mmol/L Carbon Dioxide (22-32) mmol/L BUN (7-17) mg/dL Creatinine (0.52-1.04) mg/dL Estimated GFR (>60) mL/min BUN/Creatinine Ratio (6-22) Glucose (70-100) mg/dL Lactate (0.7-2.1) mmol/L Calcium (8.4-10.2) mg/dL Total Bilirubin (0.2-1.3) mg/dL AST (14-36) IU/L ALT (9-52) IU/L Alkaline Phosphatase (38-126) U/L Total Protein (6.3-8.2) g/dL Albumin (3.5-5.0) g/dL Globulin (1.7-4.1) g/dL Albumin/Globulin Ratio (1.0-2.8) Lipase (23-300) U/L Procalcitonin < 0.05 (<0.5) ng/mL Urine RBC (0-5/HPF) Urine WBC (0-5/HPF) Ur Squamous Epith Cells (0-5/HPF) Amorphous Sediment Urine Bacteria (None) Urine Mucus (Negative) Ur Culture Indicated? 12/04/18 12/04/18 12/04/18 Range/Units 15:30 15:30 16:30 WBC (4.5-11.0) X10^3/uL RBC (4.0-5.2) X10^6/uL Hgb (12.0-16.0) g/dL Hct (36-46) % MCV (80-100) fL MCH (26-34) PG MCHC (30-36) % RDW (11.6-14.8) % Plt Count (150-400) X10^3/uL Neut % (Auto) (50-75) % Lymph % (Auto) (25-40) % [place] % (Auto) (3-14) % Eos % (Auto) (2-4) % Baso % (Auto) (0-2) % Neut # (Auto) (0022-0930) /uL Lymph # (Auto) (9445-3453) /uL [place] # (Auto) (0-900) /uL Eos # (Auto) (0-450) /uL Baso # (Auto) (0-100) /uL PT (10.1-12.7) SECONDS INR (0.9-1.3) APTT (26.4-36.2) SECONDS Sodium 142 (137-145) mmol/L Potassium 3.7 (3.4-5.1) mmol/L Chloride 107 (98-107) mmol/L Carbon Dioxide 25 (22-32) mmol/L BUN 8 (7-17) mg/dL Creatinine 0.50 L (0.52-1.04) mg/dL Estimated GFR > 60.0 (>60) mL/min BUN/Creatinine Ratio 16.0 (6-22) Glucose 84 (70-100) mg/dL Lactate 0.9 (0.7-2.1) mmol/L Calcium 9.8 (8.4-10.2) mg/dL Total Bilirubin 1.2 (0.2-1.3) mg/dL AST 16 (14-36) IU/L ALT 9 (9-52) IU/L Alkaline Phosphatase 99 (38-126) U/L Total Protein 7.4 (6.3-8.2) g/dL Albumin 4.1 (3.5-5.0) g/dL Globulin 3.3 (1.7-4.1) g/dL Albumin/Globulin Ratio 1.2 (1.0-2.8) Lipase 90 (23-300) U/L Procalcitonin (<0.5) ng/mL Urine RBC 5-10/hpf H (0-5/HPF) Urine WBC 5-10/hpf H (0-5/HPF) Ur Squamous Epith Cells 1-5 /hpf (0-5/HPF) Amorphous Sediment 1+ Urine Bacteria Few (2-10) H (None) Urine Mucus 1+ H (Negative) Ur Culture Indicated? Specimen cultured Point of Care Testing Test Results Negative Urine Dip Bedside Urine Glucose Negative Bedside Urine Bilirubin - Negative Bedside Urine Ketone ++ 40 Urine Specific Vestal 1.030 Bedside Urine Occult Blood +++ Bedside Urine pH 5.5 Bedside Urine Protein +/- 15 Bedside Urine Urobilinogen +/- 1mg Bedside Urine Nitrite - Negative Bedside Urine Leukocytes +/- 15 Esterase Discharge Plan Departure Patient Disposition: Home Clinical Impression: Community acquired pneumonia Qualifiers: Laterality: right Lung location: upper lobe of lung Qualified Code(s): J18.1 - Lobar pneumonia, unspecified organism Discharge Date/Time: 12/04/18 17:51 Interventions: ED Discharge Assessment Last Done: 12/04/18 17:49 Instructions: DI for Pneumonia -- Adult Activity Restrictions/Additional Instructions: Thank you for trusting as with your care today. Unfortunately you have pneumonia again. We have placed you on doxycycline. Your sputum cultures should be resulted in 48-72 hours. We have also given you a spacer and an albuterol inhaler to take home. Please call your primary care physician tomorrow to schedule emergency department follow-up. Please come back to the emergency department for any acute concerns such as chest pain, shortness of breath etc Please rest, push fluids, please work to stop smoking when able. Prescriptions: New doxycycline hyclate 100 mg tablet 100 mg PO BID Qty: 20 RF: 0 No Action hydrocodone-acetaminophen 5-325 mg tablet 1 tab PO Q6H PRN (Reason: pain) RF: 0 erythromycin 5 mg/gram (0.5 %) ointment RF: 0 oxycodone 5 mg tablet 5 mg PO Q6H PRN (Reason: pain) RF: 0 azithromycin 500 mg tablet See Rx Instructions .ROUTE .COMPLEX Qty: 6 RF: 0 hydrocodone-acetaminophen 5-325 mg tablet 1 tab PO Q6H PRN (Reason: pain) Qty: 10 RF: 0 tramadol [Ultram] 50 mg tablet 50 mg PO Q6H PRN (Reason: pain) Qty: 5 RF: 0 Stand Alone Forms: Work Release Note
--- NOTE | 2018-12-04 15:44 | ED_ITS ---
HPI - SOB/Dyspnea <ALMA Ohara - Last Filed: 12/04/18 18:15> General Chief Complaint: Shortness of Breath/Dyspnea Stated Complaint: dyspnea/cp x3days Time Seen by Provider: 12/04/18 15:16 Source: patient and family Mode of arrival: ambulatory Limitations: no limitations History of Present Illness The patient is a 33-year-old female current everyday smoker with history of pneumonia who presents with her mother for chief complaint of ?I think I have pneumonia again.She states that she has been coughing over the past few days, states that she is coughing up sputum. She complains of chest pain and her right upper chest. She denies any fevers nausea vomiting or diarrhea. She does complain of chills. Of note she was recently treated for pneumonia with azithromycin on October 11. She states she has been using her albuterol inhaler more. Related Data Home Medications Medication Instructions Recorded Confirmed erythromycin 10/11/18 hydrocodone-acetaminophen 1 tab PO Q6H PRN 10/11/18 10/11/18 oxycodone 5 mg PO Q6H PRN 10/11/18 10/11/18 Previous Rx's Medication Instructions Recorded tramadol [Ultram] 50 mg PO Q6H PRN #5 tab 07/07/18 azithromycin See Rx Instructions .ROUTE 10/11/18 .COMPLEX #6 tab hydrocodone-acetaminophen 1 tab PO Q6H PRN #10 tab 10/11/18 doxycycline hyclate 100 mg PO BID #20 tab 12/04/18 Allergies Allergy/AdvReac Type Severity Reaction Status Date / Time No Known Drug Allergies Allergy Verified 10/11/18 08:05 Review of Systems <ALMA Ohara - Last Filed: 12/04/18 18:15> Review of Systems GENERAL: See HPI HEENT: Denies sinus pain, ear pain, sore throat, difficulty swallowing, dizziness. RESPIRATORY: See HPI CARDIOVASCULAR: Denies chest pain, palpitations, orthopnea, edema, GASTROINTESTINAL: Denies nausea, vomiting, abdominal pain, diarrhea, constipation, melena. : Denies dysuria, frequency, incontinence, hematuria, urinary retention. MUSCULOSKELETAL: denies weakness, joint pain, or bony pain SKIN: Denies rash, skin lesions, or other NEUROLOGIC: Denies weakness, headache, numbness, change in speech, confusion, seizures, incoordination. PSYCHIATRIC: No concerning psychosocial issues. 12 point review of systems is negative except for those stated above PFSH <Kiersten AndreDEVEN-MILVIA - Last Filed: 12/04/18 18:15> Social History Smoking Status: Current every day smoker Exam <Kiersten GomezLACHELLE garcia - Last Filed: 12/04/18 18:15> Narrative Exam Narrative: GENERAL: This is a well-nourished, well-developed patient, appears uncomfortable HEAD: Atraumatic. Normocephalic. No temporal or scalp tenderness. EYES: Pupils equal round and reactive. Extraocular motions intact. No scleral icterus. No injection or drainage. ENT: Nose without bleeding, purulent drainage or septal hematoma. Throat without erythema, tonsillar hypertrophy or exudate. Uvula midline. Airway patent. NECK: Trachea midline. No JVD or lymphadenopathy. Supple, nontender, no meningeal signs. CARDIOVASCULAR: Regular rate and rhythm RESPIRATORY: Right-sided crackles to auscultation. Productive cough. No accessory muscle use. Speaking full sentences. GASTROINTESTINAL: Abdomen soft, non-tender, nondistended. No hepato-spleno megaly, or palpable masses. No guarding. Active bowel sounds all 4 quadrants. EXTREMITIES: No clubbing, cyanosis, or edema. No joint tenderness, effusion, or edema noted. BACK: Nontender without deformity or crepitance. No flank tenderness. NEURO: AOx3. SKIN: No rash or erythema. Initial Vital Signs Initial Vital Signs: Vital Signs Temperature 97.9 F 12/04/18 14:00 Pulse Rate 105 H 12/04/18 14:00 Respiratory Rate 24 12/04/18 14:00 Blood Pressure 158/121 H 12/04/18 14:00 Pulse Oximetry 99 12/04/18 14:00 <Dayna Ga MD - Last Filed: 12/04/18 19:55> Initial Vital Signs Initial Vital Signs: Vital Signs Temperature 97.9 F 12/04/18 14:00 Pulse Rate 105 H 12/04/18 14:00 Respiratory Rate 24 12/04/18 14:00 Blood Pressure 158/121 H 12/04/18 14:00 Pulse Oximetry 99 12/04/18 14:00 Course <Kiersten Andre, MERCHANDISE STOCKER-BC - Last Filed: 12/04/18 18:15> Orders Ordered: ED Orders 12/04/18 14:08 XR chest 2V Stat 12/04/18 15:30 Complete Blood Count AUTO DIFF Stat Comprehensive Metabolic Panel Stat Lactate (Lactic Acid) Stat Lipase Stat Partial Thromboplastin Time Stat Procalcitonin Stat Prothrombin Time INR Stat 12/04/18 15:45 Blood Culture Stat Sputum Culture Stat 12/04/18 16:30 Urine Culture Stat Urine Microscopic Stat Discontinued Medications Albuterol (Ventolin Hfa Prepack) 1 box MISC SEEINSTR ONE Stop: 12/04/18 16:40 Last Admin: 12/04/18 16:43 Dose: 1 box Albuterol/Ipratropium (Duoneb) 3 ml INH Q1H PRN PRN Reason: Shortness Of Breath Last Admin: 12/04/18 15:15 Dose: 3 ml Doxycycline Hyclate (Vibramycin) 100 mg PO NOW ONE Stop: 12/04/18 16:40 Last Admin: 12/04/18 16:45 Dose: 100 mg Guaifenesin (Mucinex) 600 mg PO NOW ONE Stop: 12/04/18 15:06 Last Admin: 12/04/18 16:07 Dose: 600 mg Sodium Chloride (Normal Saline 0.9%) 1,000 mls @ 1,000 mls/hr IV BOLUS ONE Stop: 12/04/18 16:04 Last Infusion: 12/04/18 16:31 Dose: 0 mls/hr Admin: 12/04/18 15:34 Dose: 1,000 mls/hr Sodium Chloride (Normal Saline 0.9%) 1,000 mls @ 1,000 mls/hr IV BOLUS ONE Stop: 12/04/18 17:30 Last Infusion: 12/04/18 17:49 Dose: 0 mls/hr Admin: 12/04/18 16:37 Dose: 1,000 mls/hr Sodium Chloride (Normal Saline 0.9%) 1,000 mls @ 1,000 mls/hr IV BOLUS ONE Stop: 12/04/18 17:30 Last Admin: 12/04/18 16:38 Dose: Not Given Ketorolac Tromethamine (Toradol) 30 mg IV NOW ONE Stop: 12/04/18 15:06 Last Admin: 12/04/18 15:33 Dose: 30 mg Vital Signs - 8 hr 12/04/18 14:00 12/04/18 15:10 12/04/18 15:37 Temperature 97.9 F 98.1 F Pulse Rate 105 H 93 H 110 H Respiratory Rate 24 16 16 Blood Pressure 158/121 H Blood Pressure [Left Arm] 150/92 H Pulse Oximetry 99 97 95 12/04/18 17:00 Temperature Pulse Rate 98 H Respiratory Rate 15 Blood Pressure Blood Pressure [Left Arm] 158/97 H Pulse Oximetry 100 <Dayna Ga MD - Last Filed: 12/04/18 19:55> Orders Ordered: ED Orders 12/04/18 14:08 XR chest 2V Stat 12/04/18 15:30 Complete Blood Count AUTO DIFF Stat Comprehensive Metabolic Panel Stat Lactate (Lactic Acid) Stat Lipase Stat Partial Thromboplastin Time Stat Procalcitonin Stat Prothrombin Time INR Stat 12/04/18 15:45 Blood Culture Stat Sputum Culture Stat 12/04/18 16:30 Urine Culture Stat Urine Microscopic Stat Discontinued Medications Albuterol (Ventolin Hfa Prepack) 1 box MISC SEEINSTR ONE Stop: 12/04/18 16:40 Last Admin: 12/04/18 16:43 Dose: 1 box Albuterol/Ipratropium (Duoneb) 3 ml INH Q1H PRN PRN Reason: Shortness Of Breath Last Admin: 12/04/18 15:15 Dose: 3 ml Doxycycline Hyclate (Vibramycin) 100 mg PO NOW ONE Stop: 12/04/18 16:40 Last Admin: 12/04/18 16:45 Dose: 100 mg Guaifenesin (Mucinex) 600 mg PO NOW ONE Stop: 12/04/18 15:06 Last Admin: 12/04/18 16:07 Dose: 600 mg Sodium Chloride (Normal Saline 0.9%) 1,000 mls @ 1,000 mls/hr IV BOLUS ONE Stop: 12/04/18 16:04 Last Infusion: 12/04/18 16:31 Dose: 0 mls/hr Admin: 12/04/18 15:34 Dose: 1,000 mls/hr Sodium Chloride (Normal Saline 0.9%) 1,000 mls @ 1,000 mls/hr IV BOLUS ONE Stop: 12/04/18 17:30 Last Infusion: 12/04/18 17:49 Dose: 0 mls/hr Admin: 12/04/18 16:37 Dose: 1,000 mls/hr Sodium Chloride (Normal Saline 0.9%) 1,000 mls @ 1,000 mls/hr IV BOLUS ONE Stop: 12/04/18 17:30 Last Admin: 12/04/18 16:38 Dose: Not Given Ketorolac Tromethamine (Toradol) 30 mg IV NOW ONE Stop: 12/04/18 15:06 Last Admin: 12/04/18 15:33 Dose: 30 mg Vital Signs - 8 hr 12/04/18 14:00 12/04/18 15:10 12/04/18 15:37 Temperature 97.9 F 98.1 F Pulse Rate 105 H 93 H 110 H Respiratory Rate 24 16 16 Blood Pressure 158/121 H Blood Pressure [Left Arm] 150/92 H Pulse Oximetry 99 97 95 12/04/18 17:00 Temperature Pulse Rate 98 H Respiratory Rate 15 Blood Pressure Blood Pressure [Left Arm] 158/97 H Pulse Oximetry 100 MDM - SOB/Dyspnea <DVEEN Ohara-BC - Last Filed: 12/04/18 18:15> Lab Data Result diagrams: 12/04/18 15:30 12/04/18 15:30 Lab Results 12/04/18 12/04/18 12/04/18 Range/Units 15:30 15:30 15:30 WBC 10.7 (4.5-11.0) X10^3/uL RBC 3.55 L (4.0-5.2) X10^6/uL Hgb 12.5 (12.0-16.0) g/dL Hct 36.2 (36-46) % MCV 102.1 H (80-100) fL MCH 35.3 H (26-34) PG MCHC 34.5 (30-36) % RDW 13.1 (11.6-14.8) % Plt Count 294 (150-400) X10^3/uL Neut % (Auto) 72.7 (50-75) % Lymph % (Auto) 16.1 L (25-40) % [place] % (Auto) 10.6 (3-14) % Eos % (Auto) 0.2 L (2-4) % Baso % (Auto) 0.4 (0-2) % Neut # (Auto) 7800 H (2354-2471) /uL Lymph # (Auto) 1700 (6049-0453) /uL [place] # (Auto) 1100 H (0-900) /uL Eos # (Auto) 0 (0-450) /uL Baso # (Auto) 0 (0-100) /uL PT 12.1 (10.1-12.7) SECONDS INR 1.0 (0.9-1.3) APTT 32 (26.4-36.2) SECONDS Sodium (137-145) mmol/L Potassium (3.4-5.1) mmol/L Chloride (98-107) mmol/L Carbon Dioxide (22-32) mmol/L BUN (7-17) mg/dL Creatinine (0.52-1.04) mg/dL Estimated GFR (>60) mL/min BUN/Creatinine Ratio (6-22) Glucose (70-100) mg/dL Lactate (0.7-2.1) mmol/L Calcium (8.4-10.2) mg/dL Total Bilirubin (0.2-1.3) mg/dL AST (14-36) IU/L ALT (9-52) IU/L Alkaline Phosphatase (38-126) U/L Total Protein (6.3-8.2) g/dL Albumin (3.5-5.0) g/dL Globulin (1.7-4.1) g/dL Albumin/Globulin Ratio (1.0-2.8) Lipase (23-300) U/L Procalcitonin < 0.05 (<0.5) ng/mL Urine RBC (0-5/HPF) Urine WBC (0-5/HPF) Ur Squamous Epith Cells (0-5/HPF) Amorphous Sediment Urine Bacteria (None) Urine Mucus (Negative) Ur Culture Indicated? 12/04/18 12/04/18 12/04/18 Range/Units 15:30 15:30 16:30 WBC (4.5-11.0) X10^3/uL RBC (4.0-5.2) X10^6/uL Hgb (12.0-16.0) g/dL Hct (36-46) % MCV (80-100) fL MCH (26-34) PG MCHC (30-36) % RDW (11.6-14.8) % Plt Count (150-400) X10^3/uL Neut % (Auto) (50-75) % Lymph % (Auto) (25-40) % [place] % (Auto) (3-14) % Eos % (Auto) (2-4) % Baso % (Auto) (0-2) % Neut # (Auto) (5585-7270) /uL Lymph # (Auto) (4993-3020) /uL [place] # (Auto) (0-900) /uL Eos # (Auto) (0-450) /uL Baso # (Auto) (0-100) /uL PT (10.1-12.7) SECONDS INR (0.9-1.3) APTT (26.4-36.2) SECONDS Sodium 142 (137-145) mmol/L Potassium 3.7 (3.4-5.1) mmol/L Chloride 107 (98-107) mmol/L Carbon Dioxide 25 (22-32) mmol/L BUN 8 (7-17) mg/dL Creatinine 0.50 L (0.52-1.04) mg/dL Estimated GFR > 60.0 (>60) mL/min BUN/Creatinine Ratio 16.0 (6-22) Glucose 84 (70-100) mg/dL Lactate 0.9 (0.7-2.1) mmol/L Calcium 9.8 (8.4-10.2) mg/dL Total Bilirubin 1.2 (0.2-1.3) mg/dL AST 16 (14-36) IU/L ALT 9 (9-52) IU/L Alkaline Phosphatase 99 (38-126) U/L Total Protein 7.4 (6.3-8.2) g/dL Albumin 4.1 (3.5-5.0) g/dL Globulin 3.3 (1.7-4.1) g/dL Albumin/Globulin Ratio 1.2 (1.0-2.8) Lipase 90 (23-300) U/L Procalcitonin (<0.5) ng/mL Urine RBC 5-10/hpf H (0-5/HPF) Urine WBC 5-10/hpf H (0-5/HPF) Ur Squamous Epith Cells 1-5 /hpf (0-5/HPF) Amorphous Sediment 1+ Urine Bacteria Few (2-10) H (None) Urine Mucus 1+ H (Negative) Ur Culture Indicated? Specimen cultured Point of Care Testing Test Results Negative Urine Dip Bedside Urine Glucose Negative Bedside Urine Bilirubin - Negative Bedside Urine Ketone ++ 40 Urine Specific [place] 1.030 Bedside Urine Occult Blood +++ Bedside Urine pH 5.5 Bedside Urine Protein +/- 15 Bedside Urine Urobilinogen +/- 1mg Bedside Urine Nitrite - Negative Bedside Urine Leukocytes +/- 15 Esterase Imaging Data Chest x-ray: Radiologist's impression: [address] [address] XRay Report Signed Patient: Brinda Mathews MMR#: [id number] : 1985Acct:[id number] Age/Sex: 33 / FDate of Service: 12/04/18 Loc: ED Accession Number: [id number] Procedure: XR chest 2V Ordering Provider: Dayna Ga MD PROCEDURE: XR CHEST 2V INDICATIONS: cough TECHNIQUE: 2 views of the chest were acquired. COMPARISON: None. FINDINGS: Surgical changes and devices: None. Lungs and pleura: There is mild patchy opacity within the right upper lobe anteroinferiorly adjacent to the minor fissure. No pleural effusions or pneumothorax. Mediastinum: Mediastinal contours are normal. Heart size is normal. Bones and chest wall: No suspicious bony abnormalities. Soft tissues appear unremarkable. IMPRESSION: Right upper lobe pneumonia. Followup PA and lateral chest films are recommended to ensure resolution, and to exclude underlying malignancy. Dictated by: Anupam Gilmore M.D. on 12/04/2018 at 13:34 Approved by: Anupam Gilmore M.D. on 12/04/2018 at 13:35 [facility] Narrative Medical decision making narrative: The patient is a 33-year-old female who presents with recurrent pneumonia. She was most recently treated for right- sided pneumonia on October 11 of this year. She presents again with productive cough and pneumonia in her right upper lobe. She was treated with azithromycin last time as well as IM Rocephin. She does not have an elevated white blood cell count, lactate or pro calcitonin. She was treated with nebulizer treatments, IV fluids. I did discuss using doxycycline versus Levaquin. The patient elected to refrain from using fluoroquinolones at this point in time given the tendon morning as well as her history of C diff. I did discuss using sunscreen while taking doxycycline. I gave her a take home pack of albuterol. I did discuss at length, smoking cessation as well as follow-up with her PCP. Discussed coming back to the ER for any acute concerns such as chest pain, shortness of breath etc. She does have a sputum culture pending at this point time. <Dayna Ga MD - Last Filed: 12/04/18 19:55> Lab Data Lab Results 12/04/18 12/04/18 12/04/18 Range/Units 15:30 15:30 15:30 WBC 10.7 (4.5-11.0) X10^3/uL RBC 3.55 L (4.0-5.2) X10^6/uL Hgb 12.5 (12.0-16.0) g/dL Hct 36.2 (36-46) % MCV 102.1 H (80-100) fL MCH 35.3 H (26-34) PG MCHC 34.5 (30-36) % RDW 13.1 (11.6-14.8) % Plt Count 294 (150-400) X10^3/uL Neut % (Auto) 72.7 (50-75) % Lymph % (Auto) 16.1 L (25-40) % [place] % (Auto) 10.6 (3-14) % Eos % (Auto) 0.2 L (2-4) % Baso % (Auto) 0.4 (0-2) % Neut # (Auto) 7800 H (3574-7471) /uL Lymph # (Auto) 1700 (6916-7804) /uL [place] # (Auto) 1100 H (0-900) /uL Eos # (Auto) 0 (0-450) /uL Baso # (Auto) 0 (0-100) /uL PT 12.1 (10.1-12.7) SECONDS INR 1.0 (0.9-1.3) APTT 32 (26.4-36.2) SECONDS Sodium (137-145) mmol/L Potassium (3.4-5.1) mmol/L Chloride (98-107) mmol/L Carbon Dioxide (22-32) mmol/L BUN (7-17) mg/dL Creatinine (0.52-1.04) mg/dL Estimated GFR (>60) mL/min BUN/Creatinine Ratio (6-22) Glucose (70-100) mg/dL Lactate (0.7-2.1) mmol/L Calcium (8.4-10.2) mg/dL Total Bilirubin (0.2-1.3) mg/dL AST (14-36) IU/L ALT (9-52) IU/L Alkaline Phosphatase (38-126) U/L Total Protein (6.3-8.2) g/dL Albumin (3.5-5.0) g/dL Globulin (1.7-4.1) g/dL Albumin/Globulin Ratio (1.0-2.8) Lipase (23-300) U/L Procalcitonin < 0.05 (<0.5) ng/mL Urine RBC (0-5/HPF) Urine WBC (0-5/HPF) Ur Squamous Epith Cells (0-5/HPF) Amorphous Sediment Urine Bacteria (None) Urine Mucus (Negative) Ur Culture Indicated? 12/04/18 12/04/18 12/04/18 Range/Units 15:30 15:30 16:30 WBC (4.5-11.0) X10^3/uL RBC (4.0-5.2) X10^6/uL Hgb (12.0-16.0) g/dL Hct (36-46) % MCV (80-100) fL MCH (26-34) PG MCHC (30-36) % RDW (11.6-14.8) % Plt Count (150-400) X10^3/uL Neut % (Auto) (50-75) % Lymph % (Auto) (25-40) % [place] % (Auto) (3-14) % Eos % (Auto) (2-4) % Baso % (Auto) (0-2) % Neut # (Auto) (1124-1526) /uL Lymph # (Auto) (6564-1021) /uL [place] # (Auto) (0-900) /uL Eos # (Auto) (0-450) /uL Baso # (Auto) (0-100) /uL PT (10.1-12.7) SECONDS INR (0.9-1.3) APTT (26.4-36.2) SECONDS Sodium 142 (137-145) mmol/L Potassium 3.7 (3.4-5.1) mmol/L Chloride 107 (98-107) mmol/L Carbon Dioxide 25 (22-32) mmol/L BUN 8 (7-17) mg/dL Creatinine 0.50 L (0.52-1.04) mg/dL Estimated GFR > 60.0 (>60) mL/min BUN/Creatinine Ratio 16.0 (6-22) Glucose 84 (70-100) mg/dL Lactate 0.9 (0.7-2.1) mmol/L Calcium 9.8 (8.4-10.2) mg/dL Total Bilirubin 1.2 (0.2-1.3) mg/dL AST 16 (14-36) IU/L ALT 9 (9-52) IU/L Alkaline Phosphatase 99 (38-126) U/L Total Protein 7.4 (6.3-8.2) g/dL Albumin 4.1 (3.5-5.0) g/dL Globulin 3.3 (1.7-4.1) g/dL Albumin/Globulin Ratio 1.2 (1.0-2.8) Lipase 90 (23-300) U/L Procalcitonin (<0.5) ng/mL Urine RBC 5-10/hpf H (0-5/HPF) Urine WBC 5-10/hpf H (0-5/HPF) Ur Squamous Epith Cells 1-5 /hpf (0-5/HPF) Amorphous Sediment 1+ Urine Bacteria Few (2-10) H (None) Urine Mucus 1+ H (Negative) Ur Culture Indicated? Specimen cultured Point of Care Testing Test Results Negative Urine Dip Bedside Urine Glucose Negative Bedside Urine Bilirubin - Negative Bedside Urine Ketone ++ 40 Urine Specific [place] 1.030 Bedside Urine Occult Blood +++ Bedside Urine pH 5.5 Bedside Urine Protein +/- 15 Bedside Urine Urobilinogen +/- 1mg Bedside Urine Nitrite - Negative Bedside Urine Leukocytes +/- 15 Esterase Discharge Plan Departure Patient Disposition: Home Clinical Impression: Community acquired pneumonia Qualifiers: Laterality: right Lung location: upper lobe of lung Qualified Code(s): J18.1 - Lobar pneumonia, unspecified organism Discharge Date/Time: 12/04/18 17:51 Interventions: ED Discharge Assessment Last Done: 12/04/18 17:49 Instructions: DI for Pneumonia -- Adult Activity Restrictions/Additional Instructions: Thank you for trusting as with your care today. Unfortunately you have pneumonia again. We have placed you on doxycycline. Your sputum cultures should be resulted in 48-72 hours. We have also given you a spacer and an albuterol inhaler to take home. Please call your primary care physician tomorrow to schedule emergency department follow-up. Please come back to the emergency department for any acute concerns such as chest pain, shortness of breath etc Please rest, push fluids, please work to stop smoking when able. Prescriptions: New doxycycline hyclate 100 mg tablet 100 mg PO BID Qty: 20 RF: 0 No Action hydrocodone-acetaminophen 5-325 mg tablet 1 tab PO Q6H PRN (Reason: pain) RF: 0 erythromycin 5 mg/gram (0.5 %) ointment RF: 0 oxycodone 5 mg tablet 5 mg PO Q6H PRN (Reason: pain) RF: 0 azithromycin 500 mg tablet See Rx Instructions .ROUTE .COMPLEX Qty: 6 RF: 0 hydrocodone-acetaminophen 5-325 mg tablet 1 tab PO Q6H PRN (Reason: pain) Qty: 10 RF: 0 tramadol [Ultram] 50 mg tablet 50 mg PO Q6H PRN (Reason: pain) Qty: 5 RF: 0 Stand Alone Forms: Work Release Note
[2018-12-04 15:46] LABS: Prothrombin Time 12.1 SECONDS (10.1-12.7)
[2018-12-04 15:49] LABS: PTT Partial Thromboplastin Tim 32 SECONDS (26.4-36.2)
[2018-12-04 15:50] LABS: Alanine Aminotransferase 9 IU/L (9-52); Albumin 4.1 g/dL (3.5-5.0); Albumin Globulin Ratio 1.2 (1.0-2.8); Alkaline Phosphatase 99 U/L (38-126); Aspartate Aminotransferase 16 IU/L (14-36); Bilirubin Total 1.2 mg/dL (0.2-1.3); Blood Urea Nitrogen 8 mg/dL (7-17); Calcium 9.8 mg/dL (8.4-10.2); Carbon Dioxide 25 mmol/L (22-32); Chloride 107 mmol/L (98-107); Estimated Glomerular Filt Rate > 60.0 mL/min (>60); Globulin 3.3 g/dL (1.7-4.1); Glucose 84 mg/dL (70-100); HEMOLYSIS < 15 (0-50); Lactate (Lactic Acid) 0.9 mmol/L (0.7-2.1); Lipase 90 U/L (23-300); Potassium 3.7 mmol/L (3.4-5.1); Sodium 142 mmol/L (137-145); Total Protein 7.4 g/dL (6.3-8.2)
[2018-12-04] MEDS: guaiFENesin ER 600 MG TAB PO (16:07)
[2018-12-04 16:17] LABS: Procalcitonin < 0.05 ng/mL (<0.5)
[2018-12-04] MEDS: ALBUTEROL HFA PREPACK 1 BOX MISC (16:43)
[2018-12-04] MEDS: DOXYCYCLINE HYCLATE 100 MG TABLET PO (16:45)
[2018-12-04 17:00] VITALS: BP 158/97; PULSE 98; RESP 15; O2SAT 100
[2018-12-04 17:38] LABS: Amorphous Sediment Urine 1+; Bacteria Urine Few (2-10); Culture Indicated Urine Specimen Cultured; Mucus Urine 1+ (Negative); RBC Urine 5-10/HPF (0-5/HPF); Squamous Epithelial Cell Urine 1-5 /HPF (0-5/HPF); WBC Urine 5-10/HPF (0-5/HPF)
== END 2018-12-04 17:51 | disposition home or self-care (01) ==
PROVIDERS: Emergency Provider Nurse Practitioner Family
DX: J18.1 Lobar pneumonia, unspecified organism (principal)
CPT/HCPCS: 36415; 36591; 71046; 80053; 81003; 81015; 81025; 83605; 83690; 84145; 85025; 85610; 85730; 87040; 87070; 87077; 87086; 87147; 87185; 87205; 94640; 96361; 96374; 99283; 99284; J1885

== ENCOUNTER 2019-11-06 10:27 | Emergency (ER) | payer OTHER, MEDICAID, SELFPAY ==
--- NOTE | 2019-11-06 10:29 | ED_ITS ---
HPI - Extremity Injury (Upper) General Chief Complaint: Extremity Injury, Upper Stated Complaint: Hit her right arm last wednesday. Time Seen by Provider: 11/06/19 10:28 Source: patient and family Mode of arrival: Ambulatory Limitations: no limitations History of Present Illness HPI narrative: 34-year-old female daily smoker with extensive alcohol history presents with a chief complaint of ongoing pain to the dorsum of her right wrist ever since injuring it about a week ago. She was walking in her kitchen and bumped it on the counter and has had pain with range of motion ever since. She has used ice but denies any Tylenol or Motrin. She states her pain is worse with motion and improves with rest. She denies any numbness, tingling or weakness. MD complaint: injury to: right Onset (ago): day(s) Other Extremity Injury: Right: wrist Other injuries: none Handedness: right Place: home Severity: moderate Relieving factors: immobilization and rest Exacerbating factors: movement of extremity Context: direct blow Associated symptoms: denies other symptoms Related Data Home Medications Medication Instructions Recorded Confirmed lisinopril 10 mg PO QAM 11/06/19 11/06/19 Allergies Allergy/AdvReac Type Severity Reaction Status Date / Time No Known Drug Allergies Allergy Verified 10/11/18 08:05 Review of Systems Constitutional Constitutional: Denies chills, Denies fatigue, Denies fever(s), Denies frequent falls, Denies lethargy and Denies weakness Eyes Eyes: Denies change in vision, Denies eye discharge, Denies irritation and Denies loss of vision ENT Ears, Nose, Mouth, and Throat: Denies change in voice, Denies dizziness, Denies neck pain, Denies sore throat and Denies throat swelling Cardiovascular Cardiovascular: Denies chest pain, Denies irregular heart rhythm, Denies lightheadedness, Denies palpitations, Denies dyspnea, Denies dyspnea on exertion and Denies orthopnea Respiratory Respiratory: Denies cough, Denies dyspnea, Denies dyspnea on exertion and Denies wheezing Gastrointestinal Gastrointestinal: Denies abdominal pain, Denies change in bowel habits, Denies diarrhea, Denies nausea and Denies vomiting Genitourinary Genitourinary: Denies hematuria, Denies flank pain, Denies urinary incontinence and Denies urinary urgency Musculoskeletal Musculoskeletal: Denies back pain, Reports limited range of motion, Denies muscle weakness, Denies neck pain, Denies numbness and Denies tingling Integumentary/Breasts Skin/Breast: Denies pruritus, Denies erythema, Denies rash and Denies wounds Neurologic Neurologic: Denies behavioral changes, Denies confusion, Denies dizziness, Denies frequent falls, Denies loss of vision, Denies numbness, Denies tingling and Denies weakness Psychiatric Psychiatric: Denies anxiety, Denies behavioral changes, Denies confusion, Denies depression, Denies homicidal ideation and Denies suicidal ideation Endocrine Endocrine: Denies fatigue, Denies flushing and Denies palpitations Hematologic/Lymphatic Hematologic/Lymphatic: Denies easy bruising Allergic/Immunologic Allergic/Immunologic: Denies urticaria, Denies throat swelling and Denies wheezing Patient History Medical History Healthy adult (Acute) Surgical History Hx of appendectomy (Acute) Social History Smoking Status: Current every day smoker Smoking Status: Current every day smoker alcohol intake frequency: a few times a week Substance Use Type: does not use Exam Narrative Exam Narrative: GEN: AOx3 and in mild distress EYES: Pupils are equal, round, and reactive to light and accommodation. Extraoccular muscles are intact bilaterally. There is no subconjunctival hemorrhage or exudate. CHEST: Lungs are clear to auscultation bilaterally and free of wheezes, rales, or rhonchi. Heart rate is regular rhythm, there are no murmurs, clicks, rubs, or gallops. There is no chest wall tenderness. ABD: Abdomen is soft and nontender. There is no guarding or rebound. Bowel sounds are normal in all 4 quadrants. There is no mass or organomegaly. EXT: Full but painful range of motion of right wrist. Tender to palpate over distal radius. No numbness, tingling or weakness. Closed, isolated a neurovascularly intact SKIN: Warm, pink, and dry. No erythema or rash Initial Vital Signs Initial Vital Signs: Vital Signs Temperature 97.8 F 11/06/19 10:30 Pulse Rate 100 H 11/06/19 10:30 Respiratory Rate 16 11/06/19 10:30 Blood Pressure 178/113 H 11/06/19 10:30 Pulse Oximetry 98 11/06/19 10:30 Course Orders Ordered: ED Orders 11/06/19 10:34 XR wrist RT min 3V Stat Vital Signs Vital signs: Vital Signs - 8 hr 11/06/19 10:30 Temperature 97.8 F Pulse Rate 100 H Respiratory Rate 16 Blood Pressure 178/113 H Pulse Oximetry 98 MDM - Extremity Injury (Upper) Imaging Data Extremity x-ray #1: Attestation: I personally reviewed and interpreted this imaging study as follows: My Impression: [facility]AP Radiologist's Impression: [address] [address] XRay Report Signed Patient: Brinda Mathews MMR#: [id number] : 1985Acct:[id number] Age/Sex: 34 / FDate of Service: 11/06/19 Loc: ED Accession Number: [id number] Procedure: XR wrist RT min 3V Ordering Provider: Marcus Sarabia D.O. PROCEDURE: XR WRIST RT MIN 3V INDICATIONS: injury on Wednesday, pain with motion TECHNIQUE: 4 views of the wrist were acquired. COMPARISON: None. FINDINGS: Bones: No fractures or dislocations. No suspicious bony lesions. Scaphoid view: Scaphoid unremarkable Soft tissues: No suspicious soft tissue calcifications. IMPRESSION: No evidence acute bony abnormality of the right wrist. If clinical suspicion and/or symptoms persist, further assessment with repeat plain films, or advanced imaging (e.g., CT, MRI, or bone scan) may be helpful for further assessment. Dictated by: Austin Milligan M.D. on 11/06/2019 at 9:52 Approved by: Austin Milligan M.D. on 11/06/2019 at 9:53 Discharge Plan Departure Patient Disposition: Home Clinical Impression: Contusion of right wrist Qualifiers: Encounter type: initial encounter Qualified Code(s): S60.211A - Contusion of right wrist, initial encounter Discharge Date/Time: 11/06/19 11:00 Instructions: DI for Contusion Activity Restrictions/Additional Instructions: *You have been diagnosed with [contusion to right wrist, no fracture or dislocation] *What to do: *Take medications as directed: Continue to ice, [id number] Motrin is appropriate *Follow up with your primary care provider in 2-3 days, call for an appointment. Let them know you were seen in the Emergency Department and that we ask that you be seen in follow up *Return to ER if you should have any new, worsening or concerning symptoms Radiographic study has been interpreted by an emergency physician. The official diagnosis by radiology will be performed within the next 24 hours and should there be any change in outcome we will notify you of how to proceed. Prescriptions: No Action lisinopril 10 mg tablet 10 mg PO QAM RF: 0 Referrals: Nasreen Harris ARNP [Primary Care Provider] -
[2019-11-06 10:30] VITALS: BP 178/113; PULSE 100; RESP 16; TEMP 36.6; O2SAT 98
--- NOTE | 2019-11-06 10:34 | DI.RAD.S_ITS ---
PROCEDURE: XR WRIST RT MIN 3V INDICATIONS: injury on Wednesday, pain with motion TECHNIQUE: 4 views of the wrist were acquired. COMPARISON: None. FINDINGS: Bones: No fractures or dislocations. No suspicious bony lesions. Scaphoid view: Scaphoid unremarkable Soft tissues: No suspicious soft tissue calcifications. IMPRESSION: No evidence acute bony abnormality of the right wrist. If clinical suspicion and/or symptoms persist, further assessment with repeat plain films, or advanced imaging (e.g., CT, MRI, or bone scan) may be helpful for further assessment. Dictated by: Austin Milligan M.D. on 11/06/2019 at 9:52 Approved by: Austin Milligan M.D. on 11/06/2019 at 9:53
== END 2019-11-06 11:00 | disposition home or self-care (01) ==
PROVIDERS: Emergency Provider Emergency Medicine; PCP Nurse Practitioner Gerontology
DX: S60.211A Contusion of right wrist, initial encounter (principal); W22.09XA Striking against other stationary object, initial encounter
CPT/HCPCS: 73110; 99283

== ENCOUNTER 2020-03-04 09:22 | Emergency (ER) | payer OTHER, MEDICAID, SELFPAY ==
[2020-03-04] VITALS (20 sets, daily range): BP systolic 135–180; BP diastolic 90–116; PULSE 69–113; RESP 12–48; TEMP 36.7; O2SAT 96–100
--- NOTE | 2020-03-04 09:42 | DI.RAD.S_ITS ---
PROCEDURE: XR CHEST 2V INDICATIONS: Productive cough, shortness fobreath. TECHNIQUE: 2 views of the chest were acquired. COMPARISON: [facility], CR, XR CHEST 2V, 12/04/2018, 14:22. FINDINGS: Surgical changes and devices: None. Lungs and pleura: Lungs are clear. No pleural effusions or pneumothorax. Mediastinum: Mediastinal contours are normal. Heart size is normal. Bones and chest wall: No suspicious bony abnormalities. Soft tissues appear unremarkable. IMPRESSION: No acute finding in the chest. Dictated by: Prasanna Patel M.D. on 03/04/2020 at 10:07 Approved by: Prasanna Patel M.D. on 03/04/2020 at 10:08
[2020-03-04] MEDS: ONDANSETRON 4 MG/2 ML INJ IV (10:05)
[2020-03-04] MEDS: SODIUM CHLORIDE 0.9% 1,000 ML 1000 ML IV ×2 (10:05→11:37)
--- NOTE | 2020-03-04 10:08 | ED.NAVMDI ---
HPI - Nausea/Vomiting/Diarrhea General Chief complaint: Fever Stated complaint: VOMITING 24HRS Time Seen by Provider: 03/04/20 09:40 Source: patient Mode of arrival: Ambulatory Limitations: no limitations History of Present Illness HPI Narrative: Patient is a 34-year-old female who presents with a variety of complaints. She has had 24 hours of vomiting. However it actually started 3 days ago where she had nausea vomiting and then did okay for a day and then yesterday been vomiting nonstop. She also feels like she is short of breath she cannot take a deep breath. She does have a history of smoking and has inhalers. She denies any cough or chest pain. She has no abdominal pain or diarrhea. She cannot tolerate any fluids. She had shakes and chills. No known exposure. She also had and ovary removed for pre cancerous and has had vaginal bleeding for the last 3 weeks. It does not sound like it is heavy. MD complaint: nausea and vomiting Onset (ago): day(s) Related Data Home Medications Medication Instructions Recorded Confirmed lisinopril 10 mg PO QPM 11/06/19 03/04/20 Previous Rx's Medication Instructions Recorded ondansetron 4 mg PO Q8H PRN #10 tab 03/04/20 Allergies Allergy/AdvReac Type Severity Reaction Status Date / Time No Known Drug Allergies Allergy Verified 03/04/20 09:50 Review of Systems Review of Systems ROS Unobtainable: All systems reviewed & are unremarkable except as noted in HPI and below Constitutional Constitutional: Reports as per HPI, Reports body ache(s), Reports chills, Reports fever(s), Reports lethargy and Reports poor appetite Eyes Eyes: Denies change in vision, Denies eye discharge, Denies irritation and Denies loss of vision ENT Ears, Nose, Mouth, and Throat: Denies change in voice, Denies neck pain and Denies sore throat Cardiovascular Cardiovascular: Denies chest pain, Denies irregular heart rhythm, Denies lightheadedness, Denies palpitations, Reports dyspnea, Reports dyspnea on exertion and Denies orthopnea Respiratory Respiratory: Reports as per HPI, Reports dyspnea and Reports dyspnea on exertion Gastrointestinal Gastrointestinal: Reports as per HPI Musculoskeletal Musculoskeletal: Denies back pain, Reports myalgias and Denies neck pain Integumentary/Breasts Skin/Breast: Denies pruritus, Denies erythema, Denies rash and Denies wounds Neurologic Neurologic: Denies loss of vision Endocrine Endocrine: Denies palpitations Patient History Medical History Healthy adult (Acute) Surgical History Hx of appendectomy (Acute) Social History Smoking Status: Current every day smoker Smoking Status: Current every day smoker alcohol intake frequency: a few times a week Substance Use Type: marijuana Exam Initial Vital Signs Initial Vital Signs: Vital Signs Temperature 98.0 F 03/04/20 09:25 Pulse Rate 113 H 03/04/20 09:25 Respiratory Rate 24 03/04/20 09:25 Blood Pressure 180/116 H 03/04/20 09:25 Pulse Oximetry 100 03/04/20 09:25 GENERAL: Well-appearing, well-nourished and in no acute distress. HEENT: Head atraumatic,EOMI, pupils reactive, face symmetric, moist mucous membranes CARDIOVASCULAR: Tachycardia, regular no murmurs RESPIRATORY: Breath sounds equal bilaterally, no wheezes rales or rhonchi. ABDOMEN: Soft, nontender. Normoactive bowel sounds all 4 quadrants. No guarding or rebound. EXTREMITIES: Normal range of motion, no clubbing or edema. Neurovascularly intact NEUROLOGICAL: Alert and oriented x4.Normal gait and speech. Cranial nerves II through XII grossly intact. SKIN: Warm, dry, no laceration, no petechiae, no rashes or lesions. Course Orders Ordered: ED Orders 03/04/20 09:41 RT Consult Eval and Treat Now 03/04/20 09:42 XR chest 2V Stat 03/04/20 10:00 Blood Culture Stat COVID19 -ED/INPAT/OR/L&D Stat Complete Blood Count AUTO DIFF Stat Comprehensive Metabolic Panel Stat Lactate (Lactic Acid) Stat Lipase Stat Partial Thromboplastin Time Stat Procalcitonin Stat Prothrombin Time INR Stat 03/04/20 10:17 EKG-12 Lead Stat 03/04/20 10:44 US abdomen limited Stat 03/04/20 11:47 Urine Microscopic Stat 03/04/20 13:13 MR abdomen wo con Stat Discontinued Medications Albuterol (Ventolin Hfa (Vent/Covid R/O)) 2 puff INH NOW ONE Stop: 03/04/20 09:52 Last Admin: 03/04/20 10:28 Dose: 2 puff Documented by: AJ Sodium Chloride (Normal Saline 0.9%) 1,000 mls @ 1,000 mls/hr IV BOLUS ONE Stop: 03/04/20 10:40 Last Infusion: 03/04/20 11:05 Dose: 0 mls/hr Documented by: Admin: 03/04/20 10:05 Dose: 1,000 mls/hr Documented by: LIYA Sodium Chloride (Normal Saline 0.9%) 1,000 mls @ 1,000 mls/hr IV BOLUS ONE Stop: 03/04/20 12:23 Last Infusion: 03/04/20 12:47 Dose: 0 mls/hr Documented by: Admin: 03/04/20 11:37 Dose: 1,000 mls/hr Documented by: JAMIR Sodium Chloride (Normal Saline 0.9%) 1,000 mls @ 150 mls/hr IV CONT DIANA Last Infusion: 03/04/20 16:40 Dose: 0 mls/hr Documented by: Admin: 03/04/20 14:08 Dose: 150 mls/hr Documented by: JAVAN Lorazepam (Ativan) 1 mg IV NOW ONE Stop: 03/04/20 11:25 Last Admin: 03/04/20 11:37 Dose: 1 mg Documented by: JAMIR Lorazepam (Ativan) 0.5 mg IV NOW ONE Stop: 03/04/20 13:53 Last Admin: 03/04/20 14:07 Dose: 0.5 mg Documented by: JAVAN Ondansetron HCl (Zofran) 4 mg IV NOW ONE Stop: 03/04/20 09:42 Last Admin: 03/04/20 10:05 Dose: 4 mg Documented by: LIYA Potassium Chloride (Klor-Con M20) 40 meq PO NOW ONE Stop: 03/04/20 13:53 Last Admin: 03/04/20 14:08 Dose: 40 meq Documented by: JAVAN Potassium Chloride (Klor-Con M20) 20 meq PO NOW ONE Stop: 03/04/20 14:15 Last Admin: 03/04/20 15:09 Dose: Not Given Documented by: JAVAN Consultations Consultation #1: Dr. Strange consulted in regards to elevated bilirubin liver enzymes and cholelithiasis on ultrasound. At this time recommend MRCP. Patient is asymptomatic except for vomiting. Time: 13:12 Vital Signs Vital signs: Vital Signs - 8 hr 03/04/20 10:30 03/04/20 11:00 03/04/20 11:30 Pulse Rate 80 80 80 Respiratory Rate 42 H 35 H Blood Pressure 143/96 H 157/93 H Pulse Oximetry 98 99 98 03/04/20 11:38 03/04/20 12:00 03/04/20 12:30 Pulse Rate 77 73 80 Respiratory Rate 26 H 38 H 20 Blood Pressure 157/93 H Pulse Oximetry 99 99 98 03/04/20 13:00 03/04/20 13:30 03/04/20 13:32 Pulse Rate 94 H 93 H 89 Respiratory Rate 48 H 37 H Blood Pressure 135/97 H Pulse Oximetry 100 97 98 03/04/20 14:00 03/04/20 14:30 03/04/20 15:29 Pulse Rate 75 69 89 Respiratory Rate 15 41 H Blood Pressure 153/92 H Pulse Oximetry 97 97 96 03/04/20 15:30 03/04/20 15:32 03/04/20 16:00 Pulse Rate 99 H 86 72 Respiratory Rate 12 20 Blood Pressure 142/90 H 143/92 H Pulse Oximetry 99 98 98 03/04/20 16:30 Pulse Rate 96 H Respiratory Rate 20 Blood Pressure 150/100 H Pulse Oximetry 98 MDM - Nausea/Vomiting/Diarrhea Lab Data Attestation: I reviewed the patient's lab results. Result diagrams: 03/04/20 10:00 03/04/20 10:00 Labs: Lab Results 03/04/20 03/04/20 03/04/20 Range/Units 10:00 10:00 10:00 WBC 6.5 (4.5-11.0) X10^3/uL RBC 3.64 L (4.0-5.2) X10^6/uL Hgb 14.0 (12.0-16.0) g/dL Hct 39.9 (36-46) % MCV 109.3 H (80-100) fL MCH 38.4 H (26-34) PG MCHC 35.1 (30-36) % RDW 14.7 (11.6-14.8) % Plt Count 129 L (150-400) X10^3/uL Neut % (Auto) 84.2 H (50-75) % Lymph % (Auto) 8.7 L (25-40) % [place] % (Auto) 6.6 (3-14) % Eos % (Auto) 0.1 L (2-4) % Baso % (Auto) 0.4 (0-2) % Neut # (Auto) 5500 (9169-3614) /uL Lymph # (Auto) 600 L (4542-8424) /uL [place] # (Auto) 400 (0-900) /uL Eos # (Auto) 0 (0-450) /uL Baso # (Auto) 0 (0-100) /uL PT 10.8 (10.1-12.7) SECONDS INR 0.9 (0.9-1.3) APTT 29 D (26.4-36.2) SECONDS Sodium (137-145) mmol/L Potassium (3.4-5.1) mmol/L Chloride (98-107) mmol/L Carbon Dioxide (22-32) mmol/L BUN (7-17) mg/dL Creatinine (0.52-1.04) mg/dL Estimated GFR (>60) mL/min BUN/Creatinine Ratio (6-22) Glucose (70-100) mg/dL Lactate (0.7-2.1) mmol/L Calcium (8.4-10.2) mg/dL Total Bilirubin (0.2-1.3) mg/dL AST (14-36) IU/L ALT (<35) IU/L Alkaline Phosphatase (38-126) U/L Total Protein (6.3-8.2) g/dL Albumin (3.5-5.0) g/dL Globulin (1.7-4.1) g/dL Albumin/Globulin Ratio (1.0-2.8) Lipase (23-300) U/L Procalcitonin 0.29 (<0.5) ng/mL Urine RBC (0-5/HPF) Urine WBC (0-5/HPF) Ur Squamous Epith Cells (0-5/HPF) Urine Bacteria (None) Hyaline Casts (None) Ur Culture Indicated? COVID-19 PCR (Negative) 03/04/20 03/04/20 03/04/20 Range/Units 10:00 10:00 10:00 WBC (4.5-11.0) X10^3/uL RBC (4.0-5.2) X10^6/uL Hgb (12.0-16.0) g/dL Hct (36-46) % MCV (80-100) fL MCH (26-34) PG MCHC (30-36) % RDW (11.6-14.8) % Plt Count (150-400) X10^3/uL Neut % (Auto) (50-75) % Lymph % (Auto) (25-40) % [place] % (Auto) (3-14) % Eos % (Auto) (2-4) % Baso % (Auto) (0-2) % Neut # (Auto) (8053-4611) /uL Lymph # (Auto) (6272-3923) /uL [place] # (Auto) (0-900) /uL Eos # (Auto) (0-450) /uL Baso # (Auto) (0-100) /uL PT (10.1-12.7) SECONDS INR (0.9-1.3) APTT (26.4-36.2) SECONDS Sodium 132 L (137-145) mmol/L Potassium 3.0 L (3.4-5.1) mmol/L Chloride 91 L (98-107) mmol/L Carbon Dioxide 25 (22-32) mmol/L BUN 9 (7-17) mg/dL Creatinine 0.60 (0.52-1.04) mg/dL Estimated GFR > 60.0 (>60) mL/min BUN/Creatinine Ratio 15.0 (6-22) Glucose 127 H (70-100) mg/dL Lactate 0.9 (0.7-2.1) mmol/L Calcium 8.3 L (8.4-10.2) mg/dL Total Bilirubin 3.9 H (0.2-1.3) mg/dL AST 346 H (14-36) IU/L ALT 157 H (<35) IU/L Alkaline Phosphatase 218 H (38-126) U/L Total Protein 7.6 (6.3-8.2) g/dL Albumin 4.7 (3.5-5.0) g/dL Globulin 2.9 (1.7-4.1) g/dL Albumin/Globulin Ratio 1.6 (1.0-2.8) Lipase 423 H (23-300) U/L Procalcitonin (<0.5) ng/mL Urine RBC (0-5/HPF) Urine WBC (0-5/HPF) Ur Squamous Epith Cells (0-5/HPF) Urine Bacteria (None) Hyaline Casts (None) Ur Culture Indicated? COVID-19 PCR Negative (Negative) 03/04/20 Range/Units 11:47 WBC (4.5-11.0) X10^3/uL RBC (4.0-5.2) X10^6/uL Hgb (12.0-16.0) g/dL Hct (36-46) % MCV (80-100) fL MCH (26-34) PG MCHC (30-36) % RDW (11.6-14.8) % Plt Count (150-400) X10^3/uL Neut % (Auto) (50-75) % Lymph % (Auto) (25-40) % [place] % (Auto) (3-14) % Eos % (Auto) (2-4) % Baso % (Auto) (0-2) % Neut # (Auto) (7564-9295) /uL Lymph # (Auto) (0519-2664) /uL [place] # (Auto) (0-900) /uL Eos # (Auto) (0-450) /uL Baso # (Auto) (0-100) /uL PT (10.1-12.7) SECONDS INR (0.9-1.3) APTT (26.4-36.2) SECONDS Sodium (137-145) mmol/L Potassium (3.4-5.1) mmol/L Chloride (98-107) mmol/L Carbon Dioxide (22-32) mmol/L BUN (7-17) mg/dL Creatinine (0.52-1.04) mg/dL Estimated GFR (>60) mL/min BUN/Creatinine Ratio (6-22) Glucose (70-100) mg/dL Lactate (0.7-2.1) mmol/L Calcium (8.4-10.2) mg/dL Total Bilirubin (0.2-1.3) mg/dL AST (14-36) IU/L ALT (<35) IU/L Alkaline Phosphatase (38-126) U/L Total Protein (6.3-8.2) g/dL Albumin (3.5-5.0) g/dL Globulin (1.7-4.1) g/dL Albumin/Globulin Ratio (1.0-2.8) Lipase (23-300) U/L Procalcitonin (<0.5) ng/mL Urine RBC 1-5/hpf (0-5/HPF) Urine WBC 1-5/hpf (0-5/HPF) Ur Squamous Epith Cells 10-30 /hpf H D (0-5/HPF) Urine Bacteria Few (2-10) H (None) Hyaline Casts 5-10/lpf (None) Ur Culture Indicated? Cult not indicated COVID-19 PCR (Negative) Point of Care Testing Test Results Negative Urine Dip Bedside Urine Glucose Negative Bedside Urine Bilirubin - Negative Bedside Urine Ketone +++ 80 Urine Specific [place] 1.015 Bedside Urine Occult Blood +++ Bedside Urine pH 6.0 Bedside Urine Protein + 30 Bedside Urine Urobilinogen +/- 1mg Bedside Urine Nitrite - Negative Bedside Urine Leukocytes - Negative Esterase Imaging Data MRCP: Radiologist's Impression: PROCEDURE: MR ABDOMEN WO CON INDICATIONS: elevated bili with cholelithiasis TECHNIQUE: Coronal HASTE through the abdomen, axial 2-D FLASH in- and [id number], and breath-hold T2 FSE with fat saturation through the biliary system and pancreas. Oblique coronal and axial thin-slice HASTE, radial thick-slab HASTE centered on the extrahepatic bile ducts. Intravenous secretin: Not requested. COMPARISON: [facility], , US ABDOMEN LIMITED, 03/04/2020, 11:29. FINDINGS: Image quality: Excellent. Pancreas and biliary system: Intra- and extra-hepatic biliary ducts are non dilated. Pancreas is normal in morphology, without adjacent soft tissue edema. Pancreatic duct is normal in caliber, without developmental anomalies. Gallbladder is partially decompressed and contains a nonobstructing dependently layering stone near the fundus . Other solid organs: Liver is normal in size. There is marked signal drop on T1 out of phase imaging throughout the liver. Spleen is normal in size. No adrenal nodules. Both kidneys are normal in size, without hydronephrosis. Nodes and vessels: No retroperitoneal or mesenteric adenopathy by size criteria. Aorta and inferior vena cava are normal in size. Bowel and peritoneum: Unenhanced bowel loops are normal in caliber. No free fluid. Lung bases: No basal pleural effusions. Heart size is normal. Bones and soft tissues: No ventral hernias. Bone marrow is of normal overall signal. IMPRESSION: 1. Marked hepatic steatosis. 2. Cholelithiasis without MR evidence of acute cholecystitis or choledocholithiasis. 3. No intrahepatic biliary dilatation. Dictated by: Xin Hill M.D. on 03/04/2020 at 14:43 US - abdomen: Radiologist's Impression: PROCEDURE: US ABDOMEN LIMITED INDICATIONS: RUQ PAIN; ELEVATED BILIRUBIN TECHNIQUE: Real-time focused scanning was performed of the right upper quadrant, with image documentation. COMPARISON: [facility], CT, CT ABDOMEN PELVIS W CON, 11/18/2018, 12:16. FINDINGS: The liver demonstrates increased echogenicity compatible with fatty infiltration. Liver size appears slightly enlarged. The main portal vein is patent with appropriate direction of flow. There is a nonobstructing stone within the gallbladder. Gallbladder is partially distended without definite wall thickening or pericholecystic fluid. No biliary ductal dilatation. The visualized pancreas appears unremarkable sonographically. IMPRESSION: 1. Cholelithiasis without definite evidence of cholecystitis. 2. No biliary ductal dilatation. 3. Increased hepatic echogenicity compatible with steatosis. Dictated by: David Olsen M.D. on 03/04/2020 at 13:00 ECG Data Attestation: I personally reviewed and interpreted this ECG as follows: Prior ECG tracings: not available for review Interpretation: Normal sinus rhythm rate 78 p.r. interval 122 QRS 70 QTC 481 MDM Narrative Medical decision making narrative: The patient has elevated liver enzymes and significant elevated MCV. I suspect that she drinks alcohol more than she confesses to. She does have cholelithiasis on ultrasound questionable recently passed stone. After discussing with surgery recommend MRCP. She has absolutely no abdominal pain no right upper quadrant pain. She is slightly hypokalemic which is replaced with p.o. potassium. I discussed with her that she needs to cut back on her drinking. He has been given a couple doses of Ativan in the ED to help with her shaking it has helped significantly. She is tolerating oral fluids. MRCP is negative. She has mildly elevated procalcitonin but no obvious source of infection at this time no antibiotics. She is not anemic despite chronic ongoing vaginal bleeding, which is not addressed during this visit. At this time can be discharged Discharge Plan Departure Patient Disposition: Home Clinical Impression: Gastroenteritis, Cholelithiasis, Acute hypokalemia Discharge Date/Time: 03/04/20 16:42 Instructions: DI for Gallstones, DI for Viral Gastroenteritis -- Child Activity Restrictions/Additional Instructions: *You have been diagnosed with gastroenteritis and gallstones. Low potassium *What to do: Her liver enzymes are markedly elevated at this is likely ED to your alcohol use. It is recommended that you decrease it and decrease it slowly. Is also recommended that you have your potassium rechecked later this week or early next it is likely due to year vomiting. Should also have your liver enzymes and bilirubin recheck at that time as well *Continue to take medications as directed Zofran 4 mg every 8 hours if needed for nausea or vomiting *Follow up with your primary care provider in 2-3 days *Return to ER if you should have inability to tolerate fluids, increasing, or any new, worsening or concerning symptoms Prescriptions: New ondansetron 4 mg tablet,disintegrating 4 mg PO Q8H PRN (Reason: nausea and vomiting) Qty: 10 RF: 0 No Action lisinopril 10 mg tablet 10 mg PO QPM RF: 0
[2020-03-04 10:19] LABS: Add Manual Diff / Slide Review NO; Basophils Absolute Auto 0 /uL (0-100); Basophils Percent Auto 0.4 % (0-2); Eosinophils Absolute Auto 0 /uL (0-450); Eosinophils Percent Auto 0.1 % (2-4); Hematocrit 39.9 % (36-46); Lymphocytes Absolute Auto 600 /uL (1100-4500); Lymphocytes Percent Auto 8.7 % (25-40); Mean Corpuscular HGB Conc 35.1 % (30-36); Mean Corpuscular Hemoglobin 38.4 PG (26-34); Mean Corpuscular Volume 109.3 fL (80-100); Monocytes Absolute Auto 400 /uL (0-900); Monocytes Percent Auto 6.6 % (3-14); Neutrophils Absolute Auto 5500 /uL (1500-7000); Neutrophils Percent Auto 84.2 % (50-75); Platelet Count 129 X10^3/uL (150-400); Red Blood Cell Count 3.64 X10^6/uL (4.0-5.2); Red Cell Distribution Width 14.7 % (11.6-14.8); White Blood Cell Count 6.5 X10^3/uL (4.5-11.0)
[2020-03-04 10:20] LABS: COVID19 -Nasal RAPID Negative (Negative)
[2020-03-04 10:25] LABS: INR 0.9 (0.9-1.3); Prothrombin Time 10.8 SECONDS (10.1-12.7)
[2020-03-04 10:28] LABS: PTT Partial Thromboplastin Tim 29 SECONDS (26.4-36.2)
[2020-03-04] MEDS: ALBUTEROL HFA 200 PUFF/18 GM INH (COVID POS/VENT PTS) INH (10:28)
[2020-03-04 10:31] LABS: Alanine Aminotransferase 157 IU/L (<35); Albumin 4.7 g/dL (3.5-5.0); Albumin Globulin Ratio 1.6 (1.0-2.8); Alkaline Phosphatase 218 U/L (38-126); Aspartate Aminotransferase 346 IU/L (14-36); Bilirubin Total 3.9 mg/dL (0.2-1.3); Blood Urea Nitrogen 9 mg/dL (7-17); Calcium 8.3 mg/dL (8.4-10.2); Carbon Dioxide 25 mmol/L (22-32); Chloride 91 mmol/L (98-107); Estimated Glomerular Filt Rate > 60.0 mL/min (>60); Globulin 2.9 g/dL (1.7-4.1); Glucose 127 mg/dL (70-100); HEMOLYSIS < 15 (0-50); Lipase 423 U/L (23-300); Sodium 132 mmol/L (137-145); Total Protein 7.6 g/dL (6.3-8.2)
[2020-03-04 10:32] LABS: Lactate (Lactic Acid) 0.9 mmol/L (0.7-2.1)
--- NOTE | 2020-03-04 10:44 | DI.US.S_ITS ---
PROCEDURE: US ABDOMEN LIMITED INDICATIONS: RUQ PAIN; ELEVATED BILIRUBIN TECHNIQUE: Real-time focused scanning was performed of the right upper quadrant, with image documentation. COMPARISON: [facility], CT, CT ABDOMEN PELVIS W CON, 11/18/2018, 12:16. FINDINGS: The liver demonstrates increased echogenicity compatible with fatty infiltration. Liver size appears slightly enlarged. The main portal vein is patent with appropriate direction of flow. There is a nonobstructing stone within the gallbladder. Gallbladder is partially distended without definite wall thickening or pericholecystic fluid. No biliary ductal dilatation. The visualized pancreas appears unremarkable sonographically. IMPRESSION: 1. Cholelithiasis without definite evidence of cholecystitis. 2. No biliary ductal dilatation. 3. Increased hepatic echogenicity compatible with steatosis. Dictated by: David Olsen M.D. on 03/04/2020 at 13:00 Approved by: David Olsen M.D. on 03/04/2020 at 13:02
[2020-03-04 11:05] LABS: Procalcitonin 0.29 ng/mL (<0.5)
[2020-03-04] MEDS: LORazepam 2 MG/ML INJ 1 MG IV (11:37)
[2020-03-04 12:19] LABS: Bacteria Urine Few (2-10); Culture Indicated Urine Cult Not Indicated; Hyaline Casts Urine 5-10/LPF; RBC Urine 1-5/HPF (0-5/HPF); Squamous Epithelial Cell Urine 10-30 /HPF (0-5/HPF); WBC Urine 1-5/HPF (0-5/HPF)
--- NOTE | 2020-03-04 13:13 | DI.MRI.S_ITS ---
PROCEDURE: MR ABDOMEN WO CON INDICATIONS: elevated bili with cholelithiasis TECHNIQUE: Coronal HASTE through the abdomen, axial 2-D FLASH in- and [id number], and breath-hold T2 FSE with fat saturation through the biliary system and pancreas. Oblique coronal and axial thin-slice HASTE, radial thick-slab HASTE centered on the extrahepatic bile ducts. Intravenous secretin: Not requested. COMPARISON: [facility], , ABDOMEN LIMITED, 03/04/2020, 11:29. FINDINGS: Image quality: Excellent. Pancreas and biliary system: Intra- and extra-hepatic biliary ducts are non dilated. Pancreas is normal in morphology, without adjacent soft tissue edema. Pancreatic duct is normal in caliber, without developmental anomalies. Gallbladder is partially decompressed and contains a nonobstructing dependently layering stone near the fundus . Other solid organs: Liver is normal in size. There is marked signal drop on T1 out of phase imaging throughout the liver. Spleen is normal in size. No adrenal nodules. Both kidneys are normal in size, without hydronephrosis. Nodes and vessels: No retroperitoneal or mesenteric adenopathy by size criteria. Aorta and inferior vena cava are normal in size. Bowel and peritoneum: Unenhanced bowel loops are normal in caliber. No free fluid. Lung bases: No basal pleural effusions. Heart size is normal. Bones and soft tissues: No ventral hernias. Bone marrow is of normal overall signal. IMPRESSION: 1. Marked hepatic steatosis. 2. Cholelithiasis without MR evidence of acute cholecystitis or choledocholithiasis. 3. No intrahepatic biliary dilatation. Dictated by: Xin Hill M.D. on 03/04/2020 at 14:43 Approved by: Xin Hill M.D. on 03/04/2020 at 14:47
[2020-03-04] MEDS: LORazepam 2 MG/ML INJ 0.5 MG IV (14:07)
[2020-03-04] MEDS: POTASSIUM CHLORIDE 20 MEQ TAB 40 MEQ PO (14:08)
[2020-03-04] MEDS: SODIUM CHLORIDE 0.9% 1,000 ML 150 ML IV (14:08)
== END 2020-03-04 16:42 | disposition home or self-care (01) ==
PROVIDERS: Emergency Provider Emergency Medicine
DX: K80.20 Calculus of gallbladder without cholecystitis without obstruction (principal); K52.9 Noninfective gastroenteritis and colitis, unspecified; E87.6 Hypokalemia; R06.02 Shortness of breath; R50.9 Fever, unspecified; R11.2 Nausea with vomiting, unspecified
CPT/HCPCS: 36415; 71046; 74181; 76705; 80053; 81003; 81015; 81025; 83605; 83690; 84145; 85025; 85610; 85730; 87040; 87635; 93005; 93010; 94640; 96361; 96374; 96375; 96376; 99284; 99285; A9270; J2060; J2405

== ENCOUNTER 2020-09-25 11:56 | Emergency (ER) | payer OTHER, MEDICAID, SELFPAY ==
[2020-09-25 12:00] VITALS: BP 138/94; PULSE 105; RESP 18; TEMP 36.8; O2SAT 98; BMI 20.3
[2020-09-25 12:47] LABS: Add Manual Diff / Slide Review NO; Basophils Absolute Auto 0 /uL (0-100); Basophils Percent Auto 0.2 % (0-2); Eosinophils Absolute Auto 0 /uL (0-450); Eosinophils Percent Auto 0.1 % (2-4); Hematocrit 41.5 % (36-46); Hemoglobin 14.3 g/dL (12.0-16.0); Lymphocytes Absolute Auto 1100 /uL (1100-4500); Lymphocytes Percent Auto 8.9 % (25-40); Mean Corpuscular HGB Conc 34.4 % (30-36); Mean Corpuscular Hemoglobin 35.5 PG (26-34); Mean Corpuscular Volume 103.2 fL (80-100); Monocytes Absolute Auto 700 /uL (0-900); Monocytes Percent Auto 5.7 % (3-14); Neutrophils Absolute Auto 10800 /uL (1500-7000); Neutrophils Percent Auto 85.1 % (50-75); Platelet Count 153 X10^3/uL (150-400); Red Blood Cell Count 4.02 X10^6/uL (4.0-5.2); Red Cell Distribution Width 12.3 % (11.6-14.8); White Blood Cell Count 12.7 X10^3/uL (4.5-11.0)
[2020-09-25 12:59] LABS: Alanine Aminotransferase 142 IU/L (<35); Albumin 4.4 g/dL (3.5-5.0); Albumin Globulin Ratio 1.6 (1.0-2.8); Alkaline Phosphatase 114 U/L (38-126); Aspartate Aminotransferase 352 IU/L (14-36); BUN Creatinine Ratio 6.5 (6-22); Bilirubin Total 1.1 mg/dL (0.2-1.3); Blood Urea Nitrogen 3 mg/dL (7-17); Calcium 9.1 mg/dL (8.4-10.2); Carbon Dioxide 27 mmol/L (22-32); Chloride 100 mmol/L (98-107); Estimated Glomerular Filt Rate > 60.0 mL/min (>60); Globulin 2.8 g/dL (1.7-4.1); Glucose 75 mg/dL (70-100); HEMOLYSIS < 15 (0-50); Potassium 2.9 mmol/L (3.4-5.1); Sodium 142 mmol/L (137-145); Total Protein 7.2 g/dL (6.3-8.2)
--- NOTE | 2020-09-25 13:26 | PC.NURSE ---
1324 pt not found in [place] or surrounding areas
[2020-09-25 13:34] LABS: Thyroid Stimulating Hormone 0.436 uIU/mL (0.47-4.68)
[2020-09-25 14:36] LABS: Ethanol (ETOH) 325 mg/dL
== END 2020-09-25 13:54 | disposition left against medical advice (07) ==
PROVIDERS: Emergency Provider Emergency Medicine
DX: F10.239 Alcohol dependence with withdrawal, unspecified (principal)
CPT/HCPCS: 36415; 80053; 80320; 84443; 85025; 99283